=== PATIENT | male | born 1955 | race Caucasian/White ===

== ENCOUNTER 2018-07-13 06:10 | Inpatient (IN) | payer OTHER ==
[~2018-07-13] VITALS: Ht 177.8 cm; Wt 70.8 kg
[~2018-07-13 06:10] MED LIST: CARV3.1240 PO; LOSA-46 PO; WARF2.5T39 PO; WARF5TAB71 PO
[2018-07-13] MEDS ORDERED: SODIUM CHLORIDE 0.9% 500 ML IVB ONE (06:54)
[2018-07-13] MEDS ORDERED: MORPHINE SULFATE 4 MG/ML SYR/VIAL IV ONE (07:00)
[2018-07-13] MEDS ORDERED: ONDANSETRON HCL 4 MG/2 ML VIAL IV ONE (07:00)
[2018-07-13] MEDS ORDERED: MORPHINE SULF INJ 2 MG/ML SYRINGE 1ML ONE ×3 (07:02→13:59)
[2018-07-13 08:05] LABS: Basophils # (auto) 0 uL; Basophils % (auto) 0.4 % (0.0-2.0); Eosinophils # (auto) 0.2 uL; Eosinophils % (auto) 1.8 % (0.0-7.0); Hematocrit 46.6 % (41.0-53.0); Hemoglobin 15.8 g/dL (13.5-17.5); Lymphocytes % (auto) 10.3 % (10.0-50.0); Mean Corpuscular Hemoglobin 31.5 pg (28.0-32.0); Mean Corpuscular Hgb Conc. 33.9 g/dL (32.0-36.0); Mean Corpuscular Volume 92.8 fL (80.0-100.0); Monocytes # (auto) 0.1 uL; Monocytes % (auto) 1.2 % (0.0-12.0); Neutrophils # (auto) 8.6 uL; Neutrophils % (auto) 86.3 % (37.0-80.0); Nucleated Red Blood Cells % 0.1 %; Platelet Count (auto) 229 10^3/uL (140-450); Red Blood Cells 5.02 10^6/uL (4.5-5.90); Red Cell Distribution Width 12.8 % (11.8-14.3); White Blood Cell 9.9 10^3/uL (4.4-10.8)
[2018-07-13 08:23] LABS: Albumin 3.4 g/dL (3.4-5.0); Potassium 3.6 mmol/L (3.5-5.1)
[2018-07-13 08:28] LABS: BUN/Creatinine Ratio 15.1; Total Protein 7.5 g/dL (6.4-8.2)
[2018-07-13] MEDS ORDERED: metroNIDAZOLE 500MG/100ML 100 ML IV ONE (09:15)
[2018-07-13] MEDS ORDERED: cefTRIAXone 1GM/50ML D5W 50 ML IV ONE (09:45)
[2018-07-13] MEDS ORDERED: SODIUM CHLORIDE 0.9% 1,000 ML IV SCH (09:58)
[2018-07-13] MEDS ORDERED: NITROGLYCERIN 0.4 MG SL TAB SL PRN (10:00)
[2018-07-13] MEDS: CARVEDILOL 3.125 MG TAB PO SCH ×2 (10:00→20:54)
[2018-07-13] MEDS ORDERED: LOSARTAN POTASSIUM 50 MG TAB PO SCH (10:00)
[2018-07-13] MEDS ORDERED: MORPHINE SULFATE 4 MG/ML SYR/VIAL IV PRN (10:00)
[2018-07-13] MEDS: FAMOTIDINE 20 MG TAB PO SCH ×2 (10:15→20:54)
[2018-07-13 10:24] LABS: INR 1.91 (0.9-1.15); Prothrombin Time 19.7 sec (9.27-12.13)
[2018-07-13] MEDS: MULTIPLE VITAMIN TAB PO SCH (10:58)
[2018-07-13] MEDS: MORPHINE SULFATE 4 MG/ML SYR/VIAL IV PRN ×2 (14:02→20:52)
--- NOTE | 2018-07-13 15:15 | NUR ---
Telemetry admit from [facility] admitted to Telemetry unit after SBAR received. Patient oriented to RAINE FAN RN primary RN, unit, room, bed, and unit policies regarding patient care and visiting hours. Patient now on continuous telemetry monitoring, tele box #9 and telemetry reading on arrival to unit is a-fib. Patient weighed by bedscale and encouraged to call if they need something. All questions and concerns addressed, patient verbalized understanding. Patient's bed is locked and lowered with side rails up x2. Patient encouraged to call for assistance as needed. Call light within reach.
[2018-07-13] MEDS: HYDROcodone-ACET 5/325MG TAB PO PRN (16:36)
[2018-07-13] MEDS: metroNIDAZOLE 500MG/100ML 100 ML IV SCH ×2 (16:36→20:52)
[2018-07-13 16:44] VITALS: BP 127/59
[2018-07-13 16:47] VITALS: BP 129/61
[2018-07-13] MEDS ORDERED: WARFARIN SODIUM 1 MG TAB PO ONE (17:00)
--- NOTE | 2018-07-13 17:26 | NUR ---
MRSA swab MRSA swab sent to lab at this time.
--- NOTE | 2018-07-13 18:51 | NUR ---
End of Shift Note Patient resting in bed. Patient shows no signs or symptoms of distress or shortness of breath. Patient denies any pain at this time. Patient is in bed, locked and lowered. Will endorse care to the night clerk RN.
[2018-07-13] MEDS: TEMAZEPAM 15 MG CAP PO PRN (20:54)
[2018-07-13] MEDS: ONDANSETRON HCL 4 MG/2 ML VIAL IV PRN (21:04)
[2018-07-13 22:00] VITALS: BP 101/56
[2018-07-14] MEDS: HYDROcodone-ACET 5/325MG TAB PO PRN ×3 (02:01→19:45)
[2018-07-14] MEDS: metroNIDAZOLE 500MG/100ML 100 ML IV SCH ×4 (02:53→19:44)
[2018-07-14] MEDS: MORPHINE SULFATE 4 MG/ML SYR/VIAL IV PRN ×2 (02:56→15:07)
[2018-07-14 05:01] VITALS: BP 88/59
[2018-07-14 05:53] LABS: Basophils # (auto) 0 uL; Basophils % (auto) 0.2 % (0.0-2.0); Eosinophils # (auto) 0 uL; Eosinophils % (auto) 0.2 % (0.0-7.0); Hematocrit 37.5 % (41.0-53.0); Hemoglobin 12.7 g/dL (13.5-17.5); Lymphocytes % (auto) 6.5 % (10.0-50.0); Mean Corpuscular Hemoglobin 31.6 pg (28.0-32.0); Mean Corpuscular Hgb Conc. 33.9 g/dL (32.0-36.0); Mean Corpuscular Volume 93.3 fL (80.0-100.0); Monocytes # (auto) 0.5 uL; Monocytes % (auto) 3.2 % (0.0-12.0); Neutrophils # (auto) 13.8 uL; Neutrophils % (auto) 89.9 % (37.0-80.0); Platelet Count (auto) 169 10^3/uL (140-450); Red Blood Cells 4.02 10^6/uL (4.5-5.90); White Blood Cell 15.3 10^3/uL (4.4-10.8)
[2018-07-14 06:07] LABS: INR 2.5 (0.9-1.15); Prothrombin Time 25.4 sec (9.27-12.13)
[2018-07-14 06:11] LABS: Albumin 2.6 g/dL (3.4-5.0); Calcium 8.2 mg/dL (8.5-10.1); Potassium 3.7 mmol/L (3.5-5.1)
[2018-07-14 06:16] LABS: BUN/Creatinine Ratio 25.4; Bilirubin, Total 0.8 mg/dL (0.2-1.0); Total Protein 6.2 g/dL (6.4-8.2)
--- NOTE | 2018-07-14 08:00 | NUR ---
ASSESSMENT NOTE PT IS ALERT ORIENTED X4, RESTING IN BED COMFORTABLY, NO DISTRESS NOTED, SELF REPOSITION NEEDED, ABLE TO VERBALIS HIS DEMANDS, CALL LIGHT WITHIN REACH.
[2018-07-14] MEDS: cefTRIAXone 1GM/50ML D5W 50 ML IV SCH (08:33)
[2018-07-14 09:00] VITALS: BP 95/57
[2018-07-14] MEDS: FAMOTIDINE 20 MG TAB PO SCH ×2 (09:37→19:45)
[2018-07-14] MEDS: MULTIPLE VITAMIN TAB PO SCH (09:37)
[2018-07-14] MEDS: CARVEDILOL 3.125 MG TAB PO SCH ×2 (10:00→19:45)
--- NOTE | 2018-07-14 10:30 | NUR ---
FAMILY PT AT BED SIDE.
--- NOTE | 2018-07-14 11:45 | NUR ---
DR MCKINNON AT BED SIDE, FOLLOWING UP ON PT, WITH NEW ORDERS, PT AWARE AT BED SIDE.
--- NOTE | 2018-07-14 12:00 | NUR ---
DR MCKINNON CALLED RADIOLOGY, HE WAS INFORMED THAT THE ABSCESS IS TOO SMALL FOR ASPIRATION, DR MCKINNON INFORM ME TO RESUME COUMADIN.
--- NOTE | 2018-07-14 12:08 | NUR ---
NUTRITION CONSULT/ASSESSMENT NOTES Please refer to link notes of nutrition screen form filed under the intervention section of the plan of care for further details. Est. Needs: 1800 kcal to 2150 kcal (25-30 kcal/kgBW), 72 gms to 93 gms pro (1.0-1.3 gms/kgBW d/t mod hypoalbuminemia). Will continue to monitor pertinent labs and reassess nutrient need prn Thank you for this consult. Addendum: 07/14/18 at [address] Amended: Links added. 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 Thank you.
[2018-07-14 13:00] VITALS: BP 92/52
[2018-07-14] MEDS: SODIUM CHLORIDE 0.9% 1,000 ML IV SCH ×2 (14:56→22:30)
[2018-07-14] MEDS: HYOSCYAMINE SULF 0.125 MG ODT TAB PO SCH ×2 (14:56→22:18)
[2018-07-14 17:00] VITALS: BP 107/63
[2018-07-14] MEDS ORDERED: WARFARIN SODIUM 2 MG TAB PO ONE (17:00)
--- NOTE | 2018-07-14 18:30 | NUR ---
PT CONTINUE STABLE, RELAXED, CONTINUE ON PAIN MANAGEMENT NEEDED.
[2018-07-14] MEDS: ONDANSETRON HCL 4 MG/2 ML VIAL IV PRN (19:45)
[2018-07-14] MEDS: DOCUSATE SOD 100 MG CAP PO PRN (19:45)
[2018-07-14 22:00] VITALS: BP 105/67
[2018-07-14] MEDS: TEMAZEPAM 15 MG CAP PO PRN (22:26)
[2018-07-15] MEDS: MORPHINE SULFATE 4 MG/ML SYR/VIAL IV PRN ×3 (02:38→19:51)
[2018-07-15] MEDS: metroNIDAZOLE 500MG/100ML 100 ML IV SCH ×2 (02:38→08:55)
[2018-07-15] MEDS: SODIUM CHLORIDE 0.9% 1,000 ML IV SCH (02:39)
[2018-07-15] MEDS: ACETAMINOPHEN 325 MG TAB PO PRN (02:47)
[2018-07-15] MEDS: DOCUSATE SOD 100 MG CAP PO PRN (02:47)
[2018-07-15] MEDS: HYDROcodone-ACET 5/325MG TAB PO PRN ×2 (02:47→06:24)
[2018-07-15] MEDS: HYOSCYAMINE SULF 0.125 MG ODT TAB PO SCH ×3 (04:46→20:43)
[2018-07-15 05:00] VITALS: BP 96/61
[2018-07-15] MEDS: ONDANSETRON HCL 4 MG/2 ML VIAL IV PRN ×4 (07:03→20:43)
[2018-07-15 07:08] LABS: Basophils # (auto) 0 uL; Basophils % (auto) 0.1 % (0.0-2.0); Eosinophils # (auto) 0 uL; Eosinophils % (auto) 0.1 % (0.0-7.0); Hemoglobin 12.2 g/dL (13.5-17.5); Lymphocytes # (auto) 1.2 uL; Lymphocytes % (auto) 6.8 % (10.0-50.0); Mean Corpuscular Hemoglobin 32.1 pg (28.0-32.0); Mean Corpuscular Hgb Conc. 34.8 g/dL (32.0-36.0); Mean Corpuscular Volume 92.1 fL (80.0-100.0); Monocytes # (auto) 0.7 uL; Monocytes % (auto) 4.1 % (0.0-12.0); Neutrophils # (auto) 15.5 uL; Neutrophils % (auto) 88.9 % (37.0-80.0); Platelet Count (auto) 156 10^3/uL (140-450); Red Cell Distribution Width 12.9 % (11.8-14.3); White Blood Cell 17.4 10^3/uL (4.4-10.8)
[2018-07-15 07:23] LABS: Potassium 3.8 mmol/L (3.5-5.1)
[2018-07-15 07:27] LABS: INR 2.91 (0.9-1.15); Prothrombin Time 29.3 sec (9.27-12.13)
[2018-07-15 07:37] LABS: Albumin 2.5 g/dL (3.4-5.0); BUN/Creatinine Ratio 20.7; Bilirubin, Total 0.7 mg/dL (0.2-1.0); Calcium 8.2 mg/dL (8.5-10.1); Total Protein 6.2 g/dL (6.4-8.2)
[2018-07-15] MEDS: cefTRIAXone 1GM/50ML D5W 50 ML IV SCH (07:59)
[2018-07-15 08:00] VITALS: BP 105/67
--- NOTE | 2018-07-15 08:00 | NUR ---
ASSESSMENT NOTE PT IA ALERT ORIENTED X4, RESTING IN BED COMFORTABLY, NO DISTRESS NOTED, PT ABDOMEN APPEAR DISTENDED, PT STATED< I HAD A ROUGH NIGHT, BEEN NAUSEATED AND THROWING UP>, SELF REPOSITION NEEDED, CONTINUE ON PAIN MANAGEMENT, CALL LIGHT WITHIN REACH.
--- NOTE | 2018-07-15 08:10 | NUR ---
RE- CALLED SURGICAL CONSULT AGAIN, OPERATO INFORM ME THAT SHE JUST DID.
--- NOTE | 2018-07-15 08:40 | NUR ---
DR ORTIZ CALLED WITH NEW ORDERS, PT MADE AWARE.
[2018-07-15 08:58] VITALS: BP 102/69
--- NOTE | 2018-07-15 09:15 | NUR ---
Nasogastric tube insertion Patient educated on need for NG tube. All questions addressed. NGT inserted per MD order. 14 F, Placement verified by aspiration of stomach contents, auscultation .
--- NOTE | 2018-07-15 09:30 | NUR ---
FAMILY PT AT BED SIDE.
[2018-07-15] MEDS: D5W/SOD CHL 0.45%/KCL 40MEQ 1,000 ML IV SCH ×3 (09:52→22:05)
[2018-07-15] MEDS: FAMOTIDINE 20 MG TAB PO SCH ×2 (10:00→20:47)
[2018-07-15] MEDS: CARVEDILOL 3.125 MG TAB PO SCH ×2 (10:00→20:43)
[2018-07-15] MEDS: MULTIPLE VITAMIN TAB PO SCH (10:00)
[2018-07-15] MEDS ORDERED: GOLYTELY 4L KIT PO ONE (10:15)
--- NOTE | 2018-07-15 11:05 | NUR ---
GOLYTEL PT START TO DRINK THE GO LATELY, EXPLAIN TO PT WHY, VERBALIS UNDERSTANDING.
--- NOTE | 2018-07-15 11:43 | NUR ---
PT AFTER START TO DRINK THE GOLYTELY, HIS ABDOMEN START TO GET MORE DISTENDED, A SOFT ROUND POUCH NOTED ON PT EPIGASTRIC AREA, ADVICE PT TO STOP DRINKING, PT PT BACK ON LOW CONTINUES SUCTION, PT AWARE AT BED SIDE.
[2018-07-15] MEDS: ERTAPENEM SOD INJ 1 GM in SODIUM CHL 0.9% 50 ML IV SCH (12:10)
[2018-07-15 12:55] VITALS: BP 126/75
--- NOTE | 2018-07-15 13:40 | NUR ---
DR ORTIZ AT BED SIDE, FOLLOWING UP ON PT, AWARE THAT PT IS NOT TOLEREATING THE GO LATELY, INFORM ME TO KEEP THE NGT ON CONTINUOS SUCTION, AND GIVE PT ONE FLEET ENEMA GENTLY.
--- NOTE | 2018-07-15 14:11 | NUR ---
DR MCKINNON IS HERE, MADE AWARE OF PT LATEST UPDATE, SAID HOLD OFF ON ENEMA, AND HE WILL GOING TO PUT AN ORDER OF GASTROGRAFIN FOLLOW THROUGH.
--- NOTE | 2018-07-15 15:16 | NUR ---
OUT TO RADIOLOGY VIA A WHEEL CHAIR FOR UPPER GI SERIES, PT AT BED SIDE AWARE.
[2018-07-15] MEDS ORDERED: GASTROGRAFIN 120 ML SOL ONE (15:20)
--- NOTE | 2018-07-15 16:30 | NUR ---
PT IS BACK TO HIS ROOM, PER RADIOLOGY STAFF [place], KEEP PT OFF SUCTION TILL FURTHER ORDERS.
[2018-07-15 16:54] VITALS: BP 118/70
--- NOTE | 2018-07-15 17:15 | NUR ---
PT VOMIT 100 ML OF THE CONTRAST, RADIOLOGY MADE AWARE.
--- NOTE | 2018-07-15 17:30 | NUR ---
HEADLINE WRITER AT BED SIDE, FOR MORE X RAYS, SAID THAT PT NEED TO SIT UP MORE, IN ORDER TO GET THE CONTRAST MOVE DOWN, PT VERBALIS UNDERSTANDING, ALSO NO NGT SUCTION TILL CLEARE BY THE RADIOLOGY.
[2018-07-15] MEDS: METOCLOPRAMIDE HCL 5MG/ml INJ 2ml VIAL IV SCH (17:55)
--- NOTE | 2018-07-15 18:52 | NUR ---
PT CONTINUE TO HAVE OCCASIONAL VOMIT FROM THE CONTRAST, RE SECURE THE NGT, NGT IS OFF SUCTIONING TILL PT FINISH ALL THE IMAGES.
[2018-07-15] MEDS ORDERED: TPN PER PHARMACY IV NR ×8 (20:00)
[2018-07-15] MEDS: TEMAZEPAM 15 MG CAP PO PRN (20:42)
[2018-07-15 21:51] VITALS: BP 124/74
[2018-07-16] VITALS (9 sets, daily range): BP systolic 108–133; BP diastolic 68–89
[2018-07-16] MEDS: TEMAZEPAM 15 MG CAP PO PRN (01:50)
[2018-07-16] MEDS: ONDANSETRON HCL 4 MG/2 ML VIAL IV PRN ×3 (04:11→23:58)
[2018-07-16] MEDS: MORPHINE SULFATE 4 MG/ML SYR/VIAL IV PRN ×5 (04:11→23:46)
[2018-07-16] MEDS: METOCLOPRAMIDE HCL 5MG/ml INJ 2ml VIAL IV SCH ×2 (04:11)
[2018-07-16] MEDS: D5W/SOD CHL 0.45%/KCL 40MEQ 1,000 ML IV SCH ×3 (04:12→23:15)
[2018-07-16] MEDS: HYOSCYAMINE SULF 0.125 MG ODT TAB PO SCH (05:36)
[2018-07-16] MEDS: CARVEDILOL 3.125 MG TAB PO SCH ×2 (05:36→22:39)
[2018-07-16 05:50] LABS: Basophils # (auto) 0 uL; Eosinophils # (auto) 0 uL; Hematocrit 37.1 % (41.0-53.0); Hemoglobin 12.9 g/dL (13.5-17.5); Lymphocytes # (auto) 1.1 uL; Lymphocytes % (auto) 5.5 % (10.0-50.0); Mean Corpuscular Hemoglobin 32.2 pg (28.0-32.0); Mean Corpuscular Hgb Conc. 34.8 g/dL (32.0-36.0); Mean Corpuscular Volume 92.3 fL (80.0-100.0); Monocytes # (auto) 0.9 uL; Monocytes % (auto) 4.6 % (0.0-12.0); Neutrophils # (auto) 17.4 uL; Neutrophils % (auto) 89.9 % (37.0-80.0); Platelet Count (auto) 200 10^3/uL (140-450); Red Blood Cells 4.02 10^6/uL (4.5-5.90); Red Cell Distribution Width 12.9 % (11.8-14.3); White Blood Cell 19.4 10^3/uL (4.4-10.8)
[2018-07-16 06:01] LABS: INR 2.94 (0.9-1.15); Partial Thromboplastin Time 44.8 sec (23.78-33.04); Prothrombin Time 29.6 sec (9.27-12.13)
[2018-07-16 06:03] LABS: Calcium 8.3 mg/dL (8.5-10.1); Potassium 4.2 mmol/L (3.5-5.1)
[2018-07-16 06:51] LABS: Albumin 2.6 g/dL (3.4-5.0)
[2018-07-16 06:55] LABS: Bilirubin, Direct 0.2 mg/dL (0-0.2); Bilirubin, Total 0.4 mg/dL (0.2-1.0); Total Protein 6.5 g/dL (6.4-8.2)
--- NOTE | 2018-07-16 07:03 | NUR ---
PATIENT O2 SAT 93-94% ON ROOM AIR. PLACED PATIENT O2 2LNC. PATIENT HR 110-130S. ADMINSITERED PATIENT AM DOSE OF COREG AND COZAAR THIS AM. AWAITING F/U KUB THIS AM, THEN PLACE PATIENT NGT TO LOW CONTINUOUS SUCTION.
--- NOTE | 2018-07-16 08:45 | NUR ---
NG TUBE CONNECTED TO LIS AFTER XRAY DONE FOR SMALL BOWEL SERIES.
[2018-07-16] MEDS ORDERED: LOSARTAN POTASSIUM 50 MG TAB PO SCH (10:00)
[2018-07-16] MEDS: MULTIPLE VITAMIN TAB PO SCH (10:11)
[2018-07-16] MEDS: FAMOTIDINE 20 MG TAB PO SCH (10:11)
[2018-07-16] MEDS: ERTAPENEM SOD INJ 1 GM in SODIUM CHL 0.9% 50 ML IV SCH (10:11)
[2018-07-16] MEDS ORDERED: ENALAPRILAT 1.25 MG/ML-1ML VIAL IV PRN (10:45)
[2018-07-16] MEDS ORDERED: DIGOXIN (250MCG/ML) 2 ML AMPULE IV ONE (11:00)
--- NOTE | 2018-07-16 11:01 | NUR ---
PT SEEN BY DR. MCKINNON RESULT OF SMALL BOWEL SERIES EXPLAINED TO THE PT AND FAMILY, THE PLAN FOR TPN, ANTIBIOTIC, NPO AND POSSIBLE SURGERY. PT AND FAMILY VERBALIZED UNDERSTANDING.
--- NOTE | 2018-07-16 11:19 | NUR ---
PICC LINE CONSULT SPOKE WITH EDMAR PICC LINE NURSE, SHE SAID SHE CANNOT INSERT PICC LINE AT THIS TIME DUE TO INR 2.94, PAGED DR. MCKINNON WAITING FOR CALL BACK.
--- NOTE | 2018-07-16 11:30 | NUR ---
DR. MCKINNON AT BEDSIDE HE ORDERED TO GIVE FFP 1BAG AND CHECK INR 30 MINUTES AFTER, IF INR IS ABOVE 2 PT MAY START WITH CLINIMIX 40ML/HR AND WAIT FOR INR TO DROP FOR PICC LINE INSERTION AND START TPN.
--- NOTE | 2018-07-16 12:09 | NUR ---
PT SEEN BY DR. WILKINSON PT INFORMED ABOUT THE SMALL BOWEL SERIES , PT AND FAMILY MADE AWARE ABOUT POSSIBLE SURGERY AND COLOSTOMY. PT AND FAMILY VERBALIZED UNDERSTANDING.
--- NOTE | 2018-07-16 12:50 | NUR ---
PT SEEN BY DR. ACE
--- NOTE | 2018-07-16 14:33 | NUR ---
FRESH FROZEN PLASMA STARTED WITH UNIT # [id number]
--- NOTE | 2018-07-16 14:56 | NUR ---
Nutrition Follow-up Notes Wt.: 74.8 kg as of yesterday Pt's on oxygen via nasal cannula, asleep, no immediate family member at bedside during rounds this morning. Pt's no signs of distress noted earlier, on Clear Liquid diet with good PO intake aeb 100% ave. consumed meals (x4) since yesterday. Noted pt's now NPO and for active Cardiology and PICC line consults. Est. Needs: 1800 kcal to 2150 kcal (25-30 kcal/kgBW), 72 gms to 93 gms pro (1.0-1.3 gms/kgBW d/t mod hypoalbuminemia). Will continue to monitor pertinent labs and reassess nutrient need prn Labs: Gluc 198 H, Cr 0.60 L, Ca 8.3 L, Alb 2.6 L Skin: Esequiel scale 23, low risk, skin intact per charge lpn. GI: Pt had 1 BM yesterday per charge lpn. PES: Increased nutrient needs r/t altered GI functions aeb Intractable abdominal pain, Acute diverticulitis, mod hypoalbuminemia, reported weight loss, on Clear Liquid diet. Altered nutrition related lab values r/t current/chronic medical condition aeb hyponatremia, low Cr, hypocalcemia and mod hypoalbuminemia Will continue to monitor NPO status, skin status, pertinent labs and weight trend. F/u in 2 to 3 days. Rec.: 1.) Advance gradually to oral diet (Soft Low Fiber/Residue diet) when medically appropriate. 2.) If Albumin level continues trending down, consider Prostat 1 pkt BID. 3.) Continue close supervision with meals 4.) If still NPO, consider alternate nutrition support if medically appropriate. 5.) Refer to RD for further nutrition educ. and weight monitoring upon discharge. 6.) Continue current plan of care.
[2018-07-16 16:47] LABS: INR 3.16 (0.9-1.15); Prothrombin Time 31.7 sec (9.27-12.13)
[2018-07-16] MEDS ORDERED: CLINIMIX PER PHARMACY 0 ML IV SCH (17:00)
--- NOTE | 2018-07-16 17:35 | NUR ---
CALLED LAB REGARDING ELEVATED INR RESULT, VERIFIED IF THEY DRAW BLOOD AFTER FRESH FROZEN PLASMA, BUT FOUND OUT THEY ADDED IT TO BLOOD DRAWN AT 1230 PRIOR TO TRANSFUSION. LAB INFORMED TO DRAW BLOOD FOR ACCURATE INR RESULT POST TRANSFUSION.
[2018-07-16 18:28] LABS: INR 2.48 (0.9-1.15); Prothrombin Time 25.2 sec (9.27-12.13)
--- NOTE | 2018-07-16 18:30 | NUR ---
NG TUBE OUTPUT 1600 GREENISH COLOR.
--- NOTE | 2018-07-16 19:30 | NUR ---
Opening Shift Note Assumed care of patient from day shift RN Randa. Pt is awake and alert and oriented x4. No S/S of distress/SOB. Pt complains of abdominal pain 10/10, administered pain medication. Safety maintained with bed rails upx2, locked and in lowest position with call estrella within reach. Instructed on POC and to call for assist PRN, will continue to monitor for changes Q1hr and PRN.
[2018-07-16 19:59] LABS: Magnesium 1.8 mg/dL (1.6-2.6); Phosphorus 2.4 mg/dL (2.5-4.90)
[2018-07-16] MEDS ORDERED: InsuLIN REG 1unit/0.01ml Soln (100units/ml) SC ONE (20:00)
[2018-07-16] MEDS ORDERED: ACCU-CHEK COMFORT CURVE STRIP VI ONE (20:00)
[2018-07-16 20:04] LABS: Pre Albumin 10.6 mg/dL (20.0-40.0)
[2018-07-16] MEDS ORDERED: SODIUM PHOSPHATES 20 MEQ in SODIUM CHL 0.9% 100 ML IV ONE (21:00)
[2018-07-16] MEDS: CLINIMIX PER PHARMACY IV NR (21:14)
[2018-07-16] MEDS: ACCU-CHEK COMFORT CURVE STRIP VI SCH (23:44)
[2018-07-16] MEDS: InsuLIN REG 1unit/0.01ml Soln (100units/ml) SC SCH (23:44)
[2018-07-17] MEDS ORDERED: DEXTROSE (50%) 50ML SYRG IV SCH
[2018-07-17] MEDS: MORPHINE SULFATE 4 MG/ML SYR/VIAL IV PRN ×3 (04:05→15:46)
[2018-07-17] MEDS: ONDANSETRON HCL 4 MG/2 ML VIAL IV PRN ×4 (04:05→20:52)
[2018-07-17 04:42] VITALS: BP 118/69
[2018-07-17 05:28] LABS: Basophils # (auto) 0 uL; Eosinophils # (auto) 0 uL; Eosinophils % (auto) 0.2 % (0.0-7.0); Hematocrit 34.3 % (41.0-53.0); Hemoglobin 11.7 g/dL (13.5-17.5); Lymphocytes % (auto) 6.5 % (10.0-50.0); Mean Corpuscular Hemoglobin 31.5 pg (28.0-32.0); Mean Corpuscular Hgb Conc. 34.2 g/dL (32.0-36.0); Mean Corpuscular Volume 92.1 fL (80.0-100.0); Monocytes # (auto) 0.9 uL; Monocytes % (auto) 6.2 % (0.0-12.0); Neutrophils # (auto) 13.3 uL; Neutrophils % (auto) 87.1 % (37.0-80.0); Platelet Count (auto) 218 10^3/uL (140-450); Red Blood Cells 3.72 10^6/uL (4.5-5.90); Red Cell Distribution Width 13.1 % (11.8-14.3); White Blood Cell 15.2 10^3/uL (4.4-10.8)
[2018-07-17 05:35] LABS: INR 2.69 (0.9-1.15); Partial Thromboplastin Time 39.5 sec (23.78-33.04); Prothrombin Time 27.2 sec (9.27-12.13)
[2018-07-17 05:38] LABS: Potassium 3.8 mmol/L (3.5-5.1)
[2018-07-17 05:45] LABS: Albumin 2.5 g/dL (3.4-5.0); BUN/Creatinine Ratio 34.6; Bilirubin, Total 0.4 mg/dL (0.2-1.0); Calcium 8.3 mg/dL (8.5-10.1); Magnesium 1.9 mg/dL (1.6-2.6); Phosphorus 3.3 mg/dL (2.5-4.90); Total Protein 6.1 g/dL (6.4-8.2)
--- NOTE | 2018-07-17 06:00 | NUR ---
IV insertion IV access obtained, via clean sterile technique by inserting 22 gauge catheter at LEFT WRIST after 1 attempt(s). IV secured properly. No trauma to site. Patient tolerated well.
[2018-07-17] MEDS: InsuLIN REG 1unit/0.01ml Soln (100units/ml) SC SCH ×3 (06:14→18:30)
[2018-07-17] MEDS: ACCU-CHEK COMFORT CURVE STRIP VI SCH ×3 (06:14→18:30)
--- NOTE | 2018-07-17 07:26 | NUR ---
NG TUBE OUTPUT 500 ML BROWN COLOR
--- NOTE | 2018-07-17 07:30 | NUR ---
Opening Shift Note Assumed care of patient, awake and alert, lying on bed. No S/S of distress/SOB or pain. Call light within reach, 2 side rails up and bed in lowest position. Pt stated he had 2 bowel movement and noted active bowel sounds. Instructed on POC and to call for assist PRN, will continue to monitor for changes Q1hr and PRN.
[2018-07-17 08:28] VITALS: BP 117/59
[2018-07-17] MEDS ORDERED: PANTOPRAZOLE 40 MG/10 ML VIAL IV SCH (10:00)
[2018-07-17] MEDS: ERTAPENEM SOD INJ 1 GM in SODIUM CHL 0.9% 50 ML IV SCH (10:21)
[2018-07-17] MEDS: DIGOXIN (250MCG/ML) 2 ML AMPULE IV SCH (10:22)
[2018-07-17] MEDS: CARVEDILOL 3.125 MG TAB PO SCH ×2 (10:22→22:22)
[2018-07-17 12:10] VITALS: BP 133/78
--- NOTE | 2018-07-17 13:20 | NUR ---
DR. SETH AT BEDSIDE MADE AWARE PT HAD 7 BM WATERY AND PT IS PASSING OUT A LOT OF GAS. HE ORDERED SMALL BOWEL SERIES AND PROTONIX 40MG IV BID, HE IS AWARE PT IS COMPLAINING OF BLOOD IN THE SUCTION TUBING. PER DR. SETH IF SMALL BOWEL SERIES IS NEGATIVE PT CAN HAVE SIPS OF WATER.
[2018-07-17] MEDS: D5W/SOD CHL 0.45%/KCL 40MEQ 1,000 ML IV SCH (14:33)
[2018-07-17 16:36] VITALS: BP 146/73
--- NOTE | 2018-07-17 17:26 | NUR ---
DR. SETH NOTIFIED OF SMALL BOWEL XRAY RESULT. WAITING FOR CALL BACK.
--- NOTE | 2018-07-17 18:36 | NUR ---
DR. SETH ORDERED TO DC NGT AND PT CAN HAVE CLEAR LIQUID DIET.
--- NOTE | 2018-07-17 19:35 | NUR ---
Opening Note Received report from day shift RN. Per day shifts report MD is aware of patients A Fib rhythm and increased heart rate. Patient is awake, alert and oriented x4. No signs or symptoms of distress or shortness of breath at this time. Patient states lower left quadrant abdominal pain 4/10. Reviewed plan of care with patient, patient verbalized understanding. Call light within reach, bed in low and locked position. Will continue to monitor Q1 hour and PRN.
[2018-07-17] MEDS: CLINIMIX PER PHARMACY IV NR (19:49)
[2018-07-17] MEDS ORDERED: CLINIMIX PER PHARMACY IV NR ×6 (20:00)
[2018-07-17 21:44] VITALS: BP 128/92
[2018-07-17] MEDS: PANTOPRAZOLE 40 MG/10 ML VIAL IV SCH (22:20)
[2018-07-18] MEDS: MORPHINE SULFATE 4 MG/ML SYR/VIAL IV PRN (00:21)
[2018-07-18] MEDS: ACCU-CHEK COMFORT CURVE STRIP VI SCH ×4 (00:25→17:36)
[2018-07-18] MEDS: InsuLIN REG 1unit/0.01ml Soln (100units/ml) SC SCH ×4 (00:29→17:36)
[2018-07-18] MEDS: D5W/SOD CHL 0.45%/KCL 40MEQ 1,000 ML IV SCH ×2 (01:42→18:35)
[2018-07-18 04:45] VITALS: BP 123/68
[2018-07-18 05:49] LABS: Albumin 2.6 g/dL (3.4-5.0); Calcium 8.1 mg/dL (8.5-10.1); Magnesium 1.8 mg/dL (1.6-2.6); Potassium 3.5 mmol/L (3.5-5.1)
[2018-07-18 05:53] LABS: BUN/Creatinine Ratio 31.5; Bilirubin, Total 0.6 mg/dL (0.2-1.0); Phosphorus 2.8 mg/dL (2.5-4.90); Total Protein 6.2 g/dL (6.4-8.2)
--- NOTE | 2018-07-18 07:25 | NUR ---
Opening Shift Note Assumed care of patient, awake and alert, lying on bed. No S/S of distress/SOB or pain. Pt complains of nausea, will give medication as ordered. 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 Instructed on POC and to call for assist PRN, will continue to monitor for changes Q1hr and PRN.
[2018-07-18] MEDS: ONDANSETRON HCL 4 MG/2 ML VIAL IV PRN (07:31)
[2018-07-18 08:47] VITALS: BP 122/80
[2018-07-18] MEDS: PANTOPRAZOLE 40 MG/10 ML VIAL IV SCH ×2 (09:48→22:08)
[2018-07-18] MEDS: CARVEDILOL 3.125 MG TAB PO SCH ×2 (09:48→22:08)
[2018-07-18] MEDS: DIGOXIN (250MCG/ML) 2 ML AMPULE IV SCH (09:51)
[2018-07-18] MEDS: HYDROcodone-ACET 5/325MG TAB PO PRN ×2 (09:51→19:43)
[2018-07-18] MEDS: ERTAPENEM SOD INJ 1 GM in SODIUM CHL 0.9% 50 ML IV SCH (09:51)
[2018-07-18] MEDS: POTASSIUM CHL 20MEQ/100ML 100 ML IV SCH ×2 (11:45→15:05)
--- NOTE | 2018-07-18 12:41 | NUR ---
Nutrition Consult and Follow-up Notes Wt.: 78.3 kg as of yesterday Pt's sitting up on bed, watching TV, states he feels better, however still having mild abdominal pain when rounded this morning. Pt's on Clear Liquid diet with poor PO intake aeb <50% consumed meals (x1) since yesterday. Encouraged to drink fluids frequently as tolerated while on current diet. Pt's currently on Clinimix @ 42 ml/hr providing 510 kcal, 340 NPCs and 42.5 gms pro. Pt with inadequate PN support d/t low initiation rate delivery of diluted formula aeb current PN infusion meets 24% to 28% of est caloric needs and 47% to 59% of est protein needs. Discussed importance/benefits of PN support while on Clear Liquid r/t his current medical condition and he verbalized understanding. Noted pt's to receive tonight another Clinimix @ same rate. Est. Needs: 1800 kcal to 2150 kcal (25-30 kcal/kgBW), 72 gms to 93 gms pro (1.0-1.3 gms/kgBW d/t mod hypoalbuminemia). Will continue to monitor pertinent labs and reassess nutrient need prn Labs: Gluc 113 H, Cr 0.54 L, Ca 8.1 L, Tpro 6.2 L, Alb 2.6 L; 07/16/18 Prealb 10.6 L, Trig 78 wnl Skin: Esequiel scale 23, low risk, skin intact per documentation clerk. GI: Pt had 1 BM this morning per documentation clerk. PES: Increased nutrient needs r/t altered GI functions aeb Intractable abdominal pain, Acute diverticulitis, mod hypoalbuminemia, reported weight loss, on Clear Liquid diet. Altered nutrition related lab values r/t current/chronic medical condition aeb hyponatremia, low Cr, hypocalcemia and mod hypoalbuminemia Will continue to monitor PO intake, PN tolerance, skin status, pertinent labs and weight trend. F/u in 2 to 3 days. Rec.: 1.) Advance gradually oral diet when medically appropriate. 2.) If still on Clear Liquid diet with PN support, consider gradual increase on calories to meet at least 75% of est nutrient needs. 3.) Continue close supervision with meals. 4.) Refer to RD for further nutrition educ. and weight monitoring upon discharge. 5.) Continue current plan of care. Thank you for this consult.
[2018-07-18 16:47] VITALS: BP 119/83
--- NOTE | 2018-07-18 16:50 | NUR ---
PT SEEN BY DR. SETH HE ORDERED REPEAT CT OF ABDOMEN AND PELVIS AND PT/PTT FOR TOMORROW. PT MADE AWARE OF POSSIBLE PICC LINE INSERTION FOR HOME IV ANTIBIOTIC DEPENDING ON CT ABDOMEN RESULT. PT VERBALIZED UNDERSTANDING.
[2018-07-18] MEDS ORDERED: IOHEXOL 300 MG/ML 100ML BOTTLE IJ ONE (17:04)
--- NOTE | 2018-07-18 19:45 | NUR ---
OPENING SHIFT NOTE RECEIVED REPORT FROM DAYSHIFT RN. PT RESTING COMFORTABLY IN BED. NO S/S OF DISTRESS OR SOB. PT REPORTS GENERALIZED PAIN AND IS REQUESTING NORCO. WILL MEDICATE PER MEDICATION ORDERS. UPDATED PT ON POC, VERBALIZED UNDERSTANDING. BED LOCKED IN LOW POSITION, CALL LIGHT WITHIN REACH, WILL CONTINUE TO MONITOR PT Q1HR AND PRN.
[2018-07-18] MEDS ORDERED: CLINIMIX PER PHARMACY IV NR ×6 (20:00)
[2018-07-18 22:00] VITALS: BP 112/69
[2018-07-19] MEDS: ACCU-CHEK COMFORT CURVE STRIP VI SCH ×4 (00:29→18:09)
[2018-07-19] MEDS: TEMAZEPAM 15 MG CAP PO PRN (00:31)
[2018-07-19] MEDS: D5W/SOD CHL 0.45%/KCL 40MEQ 1,000 ML IV SCH ×3 (01:11→22:33)
[2018-07-19 05:11] VITALS: BP 116/70
[2018-07-19 05:38] LABS: Basophils # (auto) 0 uL; Basophils % (auto) 0.1 % (0.0-2.0); Eosinophils # (auto) 0.2 uL; Eosinophils % (auto) 1.8 % (0.0-7.0); Hematocrit 36.6 % (41.0-53.0); Hemoglobin 12.5 g/dL (13.5-17.5); Lymphocytes # (auto) 1.8 uL; Lymphocytes % (auto) 15.8 % (10.0-50.0); Mean Corpuscular Hemoglobin 31.3 pg (28.0-32.0); Mean Corpuscular Hgb Conc. 34.1 g/dL (32.0-36.0); Mean Corpuscular Volume 91.8 fL (80.0-100.0); Monocytes # (auto) 0.9 uL; Monocytes % (auto) 7.7 % (0.0-12.0); Neutrophils # (auto) 8.3 uL; Neutrophils % (auto) 74.6 % (37.0-80.0); Platelet Count (auto) 238 10^3/uL (140-450); Red Blood Cells 3.98 10^6/uL (4.5-5.90); White Blood Cell 11.1 10^3/uL (4.4-10.8)
[2018-07-19] MEDS: InsuLIN REG 1unit/0.01ml Soln (100units/ml) SC SCH ×4 (05:49→18:00)
[2018-07-19 05:53] LABS: INR 1.41 (0.9-1.15); Partial Thromboplastin Time 30.8 sec (23.78-33.04); Prothrombin Time 14.8 sec (9.27-12.13)
[2018-07-19 06:03] LABS: Potassium 3.7 mmol/L (3.5-5.1)
[2018-07-19 06:15] LABS: Albumin 2.3 g/dL (3.4-5.0); Bilirubin, Total 0.8 mg/dL (0.2-1.0); Calcium 7.9 mg/dL (8.5-10.1); Phosphorus 3.8 mg/dL (2.5-4.90); Total Protein 5.8 g/dL (6.4-8.2)
--- NOTE | 2018-07-19 07:13 | NUR ---
Opening Shift Note Assumed care of patient, awake and alert, sitting on bedside chair. No S/S of distress/SOB or pain. Call light within reach, 2 side rails up and bed in lowest position. Pt stated he had 5 watery stools last night. Instructed on POC and to call for assist PRN, will continue to monitor for changes Q1hr and PRN.
--- NOTE | 2018-07-19 07:18 | NUR ---
DR. SETH NOTIFIED OF THE CT ABDOMEN PELVIS RESULT, HE SAID TO NOTIFY SURGERY AND PROCEED WITH PICC LINE INSERTION.
--- NOTE | 2018-07-19 07:45 | NUR ---
DR. SETH NOTIFIED. PT HAS BEEN HAVING WATERY STOOLS 5X LAST NIGHT. HE ORDERED TO SEND STOOL FOR C-DIFF.
--- NOTE | 2018-07-19 08:11 | NUR ---
EDMAR PICC LINE NURSE MADE AWARE OF THE PICC LINE CONSULT.
--- NOTE | 2018-07-19 08:12 | NUR ---
PAGED DR. WILKINSON FOR CT ABDOMEN RESULT, WAITING FOR CALL BACK. Addendum: 07/19/18 at 0817 by Randa Judd RN DR. WILKINSON CALLED BACK AND MADE AWARE OF THE CT ABDOMEN RESULT, HE SAID HE WILL COME SEE THE PT TODAY.
--- NOTE | 2018-07-19 09:07 | NUR ---
STOOL SAMPLE SENT TO LAB FOR C-DIFF.
[2018-07-19 09:19] VITALS: BP 105/71
[2018-07-19] MEDS: ERTAPENEM SOD INJ 1 GM in SODIUM CHL 0.9% 50 ML IV SCH (09:24)
[2018-07-19] MEDS: PANTOPRAZOLE 40 MG/10 ML VIAL IV SCH ×2 (09:25→22:11)
[2018-07-19] MEDS: DIGOXIN (250MCG/ML) 2 ML AMPULE IV SCH (09:25)
[2018-07-19] MEDS: CARVEDILOL 3.125 MG TAB PO SCH ×2 (09:26→22:17)
--- NOTE | 2018-07-19 09:40 | NUR ---
PT SEEN BY DR. SETH HE SAID TO KEEP PT NPO. PT INFORMED ABOUT THE CT SCAN RESULT AND MADE AWARE HE MIGHT NEED SURGERY. PT VERBALIZED UNDERSTANDING.
[2018-07-19 13:15] VITALS: BP 101/62
--- NOTE | 2018-07-19 14:36 | NUR ---
PICC line placement Patient/Patient significant other educated on need for PICC line placement. All risks and benefits explained and all questions and concerns addressed prior to procedure. Noted past medical history and allergies with no contraindications. INR and Plt counts within acceptable range. 5 fr PICC line inserted via basilic vein using [employer] US and Tip Location System. Sterile technique with maximum barrier precautions utilized. Blood return obtained from each of two lumens and each flushed easily with NS using proper technique. PICC secured with Stat-lock; biodisc and occlusive dressing applied. Stat portable chest x-ray obtained for PICC tip placement. *Baseline Arm Circumference 29cm. PICC lot # [id number] internal length 38cm external length 0cm.
[2018-07-19] MEDS ORDERED: LIDOCAINE 1% (LOCAL ANESTH.) PF 5ml SDV ID ONE (14:45)
--- NOTE | 2018-07-19 16:06 | NUR ---
OK to use PICC line Xray completed. OK to use PICC line by .
[2018-07-19 16:59] VITALS: BP 102/78
[2018-07-19] MEDS: HYDROcodone-ACET 5/325MG TAB PO PRN (17:16)
[2018-07-19] MEDS ORDERED: [UNRECOGNIZED DRUG - OTHER] IV NR ×7 (20:00)
[2018-07-19] MEDS ORDERED: MAGNESIUM SULF IV NR ×7 (20:00)
[2018-07-19] MEDS ORDERED: SODIUM ACETATE IV NR ×7 (20:00)
[2018-07-19] MEDS ORDERED: SODIUM PHOSPHATES IV NR ×7 (20:00)
[2018-07-19 22:00] VITALS: BP 108/67
[2018-07-19] MEDS: SODIUM CHLOR 0.9% PF (SALINE LOCK) 10ML VIAL/SYR IV SCH (22:11)
[2018-07-20] MEDS: D5W/SOD CHL 0.45%/KCL 40MEQ 1,000 ML IV SCH ×2 (02:05→09:37)
[2018-07-20] MEDS: HYDROcodone-ACET 5/325MG TAB PO PRN ×4 (02:07→23:52)
[2018-07-20 05:00] VITALS: BP 106/71
[2018-07-20] MEDS: InsuLIN REG 1unit/0.01ml Soln (100units/ml) SC SCH ×5 (06:00→23:50)
[2018-07-20] MEDS: ACCU-CHEK COMFORT CURVE STRIP VI SCH ×5 (06:00→23:51)
[2018-07-20 06:28] LABS: Albumin 2.3 g/dL (3.4-5.0); Calcium 7.5 mg/dL (8.5-10.1); Potassium 3.7 mmol/L (3.5-5.1)
[2018-07-20 06:36] LABS: BUN/Creatinine Ratio 17.4; Bilirubin, Total 0.9 mg/dL (0.2-1.0); Phosphorus 3.4 mg/dL (2.5-4.90); Pre Albumin 11.7 mg/dL (20.0-40.0); Total Protein 5.5 g/dL (6.4-8.2)
--- NOTE | 2018-07-20 07:30 | NUR ---
Opening Shift Note Assumed care of patient, awake and alert, oriented x 4 and verbally responsive. Respiratory even and unlabored. No S/S of distress/SOB or pain. Skin is warm and dry to touch. Instructed on POC and to call for assist PRN, will continue to monitor for changes Q1hr and PRN.
--- NOTE | 2018-07-20 08:00 | NUR ---
DR WILKINSON INFORM THAT DR POWERS (RADIOLOGIST) WILL NOT DO PERICOLIC DRAINAGE DUE TO TOO SMALL AND NEAR THE COLON.
[2018-07-20 08:56] VITALS: BP 101/70
--- NOTE | 2018-07-20 09:16 | NUR ---
Called radiology spoke to Jojo ARMSTRONG, per Dr. Velasquez patient will not have percutaneous drainage, patient notified.
[2018-07-20] MEDS: PANTOPRAZOLE 40 MG/10 ML VIAL IV SCH ×2 (09:32→21:44)
[2018-07-20] MEDS: DIGOXIN (250MCG/ML) 2 ML AMPULE IV SCH (09:35)
[2018-07-20] MEDS: ERTAPENEM SOD INJ 1 GM in SODIUM CHL 0.9% 50 ML IV SCH (09:36)
[2018-07-20] MEDS: CARVEDILOL 3.125 MG TAB PO SCH ×2 (09:43→21:45)
[2018-07-20] MEDS: SODIUM CHLOR 0.9% PF (SALINE LOCK) 10ML VIAL/SYR IV SCH ×2 (09:43→21:48)
[2018-07-20] MEDS ORDERED: TPN PER PHARMACY 0 ML IV SCH (10:00)
[2018-07-20 12:24] VITALS: BP 106/70
--- NOTE | 2018-07-20 12:26 | NUR ---
Nutrition Follow-up Notes Wt.: 75.1 kg Pt's sleeping with no family by beside. pt is currently NPO on PN support with Clinimix @ 42 ml/hr providing 510 kcal, 340 NPCs and 42.5 gms pro. Pt with inadequate PN support d/t low initiation rate delivery of diluted formula aeb current PN infusion meets 24% to 28% of est caloric needs and 47% to 59% of est protein needs. Est. Needs: 1800 kcal to 2150 kcal (25-30 kcal/kgBW), 72 gms to 93 gms pro (1.0-1.3 gms/kgBW d/t mod hypoalbuminemia). Will continue to monitor pertinent labs and reassess nutrient need prn Labs: CA 7.5 L, GLU 116 H, PREALB 11.7 L, ALB 2.3 L. Skin: Esequiel scale 21, low risk, skin intact per application support analyst. GI: Pt had 1 BM on 07/19 per application support analyst. PES: Increased nutrient needs r/t altered GI functions aeb Intractable abdominal pain, Acute diverticulitis, mod hypoalbuminemia, reported weight loss, on Clear Liquid diet. Altered nutrition related lab values r/t current/chronic medical condition aeb hyponatremia, low Cr, hypocalcemia and mod hypoalbuminemia Will continue to monitor NPO status, PN tolerance, skin status, pertinent labs and weight trend. F/u in 2 to 3 days. Rec.: 1.) Advance gradually oral diet when medically appropriate. 2.) Advance PN support, to gradual increase on calories to meet at least 75% of est nutrient needs. 3.) Continue close supervision with meals. 4.) Refer to RD for further nutrition educ. and weight monitoring upon discharge. 5.) Continue current plan of care.
--- NOTE | 2018-07-20 12:30 | NUR ---
Dr. Velasquez at bedside discussed with patient.
--- NOTE | 2018-07-20 15:30 | NUR ---
Dr. Velasquez paged regarding patient already make his decision about his care plans, awaiting to call back.
--- NOTE | 2018-07-20 16:08 | NUR ---
Dr. Lee paged regarding patient wants to go home with ATB and TPN, awaiting to call back.
--- NOTE | 2018-07-20 16:24 | NUR ---
Dr. Lee made aware that patient wants to go home with ATB and TPN.
[2018-07-20 17:20] VITALS: BP 120/72
--- NOTE | 2018-07-20 19:10 | NUR ---
ASSUMED PATIENT CARE PATIENT IS ALERT AND ORIENTED X4, ANSWERS IN COMPLETE SENTENCES AND MAKES APPROPRIATE EYE CONTACT. PATIENT IS IN BED, BED IS LOCKED IN LOWEST POSITION, BED RAILS UP X2 AND HEAD OF BED IS UP 30 DEGREES FOR SAFETY PRECAUTIONS. BEDSIDE TABLE WITHIN REACH, CALL LIGHT WITHIN REACH, DISCUSSED POC WITH PATIENT AND INSTRUCTED PATIENT TO CALL PRN; PATIENT VERBALIZED UNDERSTANDING. WILL CONTINUE TO MONITOR Q1H AND PRN.
[2018-07-20] MEDS ORDERED: TPN PER PHARMACY IV NR ×10 (20:00)
[2018-07-20] MEDS ORDERED: CLINIMIX PER PHARMACY IV NR ×7 (20:00)
--- NOTE | 2018-07-20 20:00 | NUR ---
TPN STARTED. PATIENT TOLERATED WELL.
[2018-07-20 22:00] VITALS: BP 123/76
[2018-07-21 05:01] VITALS: BP 109/66
[2018-07-21 05:33] LABS: Albumin 2.4 g/dL (3.4-5.0); Magnesium 2.2 mg/dL (1.6-2.6); Potassium 3.8 mmol/L (3.5-5.1)
[2018-07-21 05:38] LABS: Bilirubin, Total 1.2 mg/dL (0.2-1.0); Total Protein 6.1 g/dL (6.4-8.2)
[2018-07-21 05:41] LABS: Phosphorus 3.7 mg/dL (2.5-4.90)
[2018-07-21] MEDS: InsuLIN REG 1unit/0.01ml Soln (100units/ml) SC SCH ×4 (06:00→23:59)
[2018-07-21] MEDS: ACCU-CHEK COMFORT CURVE STRIP VI SCH ×3 (06:12→18:40)
--- NOTE | 2018-07-21 06:54 | NUR ---
CLOSING NOTE - NOC SHIFT PATIENT IS RESTING IN BED, NO S/SX OF DISTRESS, SOB OR PAIN.
[2018-07-21 08:48] VITALS: BP 113/76
--- NOTE | 2018-07-21 09:41 | NUR ---
at bedside MD Lee at bedside, aware of patients status. New orders received for d/c home tomorrow with HH. Per Sol Zuluaga with [facility] already arranged everything and "its all taken care of". Patient instructed and educated on f/u instructions at d/c by MD including f/u with radiologist and surgeon and patient verbalized understanding. Will d/c as ordered
[2018-07-21] MEDS: PANTOPRAZOLE 40 MG/10 ML VIAL IV SCH ×2 (10:04→21:37)
[2018-07-21] MEDS: SODIUM CHLOR 0.9% PF (SALINE LOCK) 10ML VIAL/SYR IV SCH ×2 (10:06→21:37)
[2018-07-21] MEDS: CARVEDILOL 3.125 MG TAB PO SCH ×2 (10:06→21:39)
[2018-07-21] MEDS: DIGOXIN (250MCG/ML) 2 ML AMPULE IV SCH (10:07)
[2018-07-21 10:14] VITALS: BP 113/76
[2018-07-21] MEDS: ERTAPENEM SOD INJ 1 GM in SODIUM CHL 0.9% 50 ML IV SCH (10:16)
[2018-07-21] MEDS: ACETAMINOPHEN 325 MG TAB PO PRN (10:21)
--- NOTE | 2018-07-21 10:44 | NUR ---
PER GEORGE BACA ...[facility] HAS ACCEPTED PATIENT [phone]. [facility] WILL BE THE HOME [facility] [phone]. Addendum: 07/21/18 at 1513 by Domingo Majano RN [facility] WILL START CARE ON 07-21-18. GEORGE WITH [facility] WILL CALL WITH TIME FOR DELIVERY OF MEDICATION AND TPN. RN WILL START TO TAPER TPN PER MD ORDER AND PHARMACY RECOMMENDATIONS. Addendum: 07/21/18 at 1515 by Domingo Majano RN ERROR ON START DATE FOR [facility]. START DATE WILL BE 07-22-18. THEY WILL CALL PATIENT WITH A TIME FOR VISIT.
[2018-07-21 13:00] VITALS: BP 110/61
--- NOTE | 2018-07-21 13:13 | NUR ---
Spoke to clinical statistics manager I spoke to Domingo piano case maker regarding confirmation of HH and delivery of equipment as ordered. Per Domingo she's awaiting confirmation by "Sol because there might be a problem with the paper work". Per Domingo, patient cannot be d/c home yet. Awaiting confirmation of HH and equipment. Patient and pt's made aware
--- NOTE | 2018-07-21 14:40 | NUR ---
Surgeon at bedside MD Velasquez at bedside, spoke to patient and pt's extensively regarding POC and d/c f/u instructions. Pt requesting to eat "mashed potatoes and gravy and yogurt on d/c" MD Velasquez instructed patient in detail regarding ordered diet including avoiding mashed potatoes gravy and yogurt. Patient and spouse verbalized understanding. Will d/c as ordered, awaiting confirmation form Domingo adamsrn emergency. PICC line dressing changed.
--- NOTE | 2018-07-21 14:40 | NUR ---
Discharge instructions given as ordered to patient and pt's at bedside. Encourage to follow up with PMD, radiologist and surgeon as instructed. All questions and concerns addressed. Patient and spouse verbalized understanding. Medication reconciliation form completed and copy given to patient. PICC line intact, patent, dressing changed. Awaiting confirmation from case management rn for HH, abx, TPN as ordered for pt d/c.
--- NOTE | 2018-07-21 15:00 | NUR ---
Spoke to MD [address] travel med surg rn, equipment has not yet been delivered to pt's home and possibly unable to deliver TPN today therefore patient need to be taper from TPN. I informed doctor Rosa and patient. Patient requesting to "stay here one more day until tomorrow when everything is set up". Paged MD Lee regarding pt's request to cancel d/c until tomorrow, awaiting call back
[2018-07-21] MEDS: D5W/SOD CHL 0.45%/KCL 40MEQ 1,000 ML IV SCH (15:45)
--- NOTE | 2018-07-21 16:33 | NUR ---
New orders to hold d/c for today Per MD Lee, new order to d/c patient home tomorrow and Taper TPN in the a.m for d/c planning on 07/22/18. Patient informed and agrees for d/c as ordered. Will continue care as ordered, TPN currently at 54 ml/hr per pharmacy protocol. Domingo case hardener aware and states Sol with [facility] ins approved pt to stay one more day. Will endorse to oncoming Noc rn.
[2018-07-21 17:00] VITALS: BP 110/62
--- NOTE | 2018-07-21 19:05 | NUR ---
ASSUMED PATIENT CARE- NOC SHIFT PATIENT IS ALERT AND ORIENTED X4 AND MAKES APPROPRIATE EYE CONTACT. PATIENT IS IN BED, NO S/SX OF DISTRESS OR SOB. PATIENT REPORTS PAIN OF 6/10, WILL ADMINISTER PAIN MEDICATION PER MD ORDERS. BEDSIDE TABLE WITHIN REACH, CALL LIGHT WITHIN REACH. DISCUSSED POC WITH PATIENT AND INSTRUCTED PATIENT TO CALL PRN; PATIENT VERBALIZED UNDERSTANDING. WILL CONTINUE TO MONITOR Q1H AND PRN.
--- NOTE | 2018-07-21 19:05 | NUR ---
Patient care endorsed endorsed care to Amaya adams, pt laying in bed in no acute distress or sob.
[2018-07-21] MEDS: HYDROcodone-ACET 5/325MG TAB PO PRN (19:37)
[2018-07-21] MEDS ORDERED: TPN PER PHARMACY IV NR ×10 (20:00)
[2018-07-21 22:00] VITALS: BP 98/75
[2018-07-22] MEDS: HYDROcodone-ACET 5/325MG TAB PO PRN
[2018-07-22] MEDS: ACCU-CHEK COMFORT CURVE STRIP VI SCH ×3 (00:01→11:48)
[2018-07-22] MEDS: D5W/SOD CHL 0.45%/KCL 40MEQ 1,000 ML IV SCH (04:21)
[2018-07-22 04:58] VITALS: BP 105/65
[2018-07-22] MEDS: InsuLIN REG 1unit/0.01ml Soln (100units/ml) SC SCH ×2 (06:00→11:48)
--- NOTE | 2018-07-22 06:00 | NUR ---
TAPERED TPN TO 40ML PER HOUR FOR PATIENT DISCHARGE PLANNING. PATIENT STATED THAT HE RECEIVED CONFIRMATION THAT HOME [facility] DELIVERED EQUIPMENT TO HOME.
[2018-07-22 06:53] LABS: Albumin 2.5 g/dL (3.4-5.0); Calcium 8.1 mg/dL (8.5-10.1); Magnesium 2.3 mg/dL (1.6-2.6); Potassium 3.7 mmol/L (3.5-5.1)
[2018-07-22 06:56] LABS: Bilirubin, Total 0.6 mg/dL (0.2-1.0); Phosphorus 3.5 mg/dL (2.5-4.90); Total Protein 6.5 g/dL (6.4-8.2)
--- NOTE | 2018-07-22 07:42 | NUR ---
CLOSING NOTE- NOC SHIFT PATIENT IS ALERT AND ORIENTED X4, RESTING IN BED, BREATHING EVENLY. NO S/SX OF DISTRESS, SOB OR PAIN. PATIENT IS RUNNING TPN TO PICC LINE AT 40 MLS.
--- NOTE | 2018-07-22 08:18 | NUR ---
TPN TAPERED TPN TO 20ML/HR PER PHARMACY PROTOCOL. PATIENT TOLERATING WELL. NO S/S OF DISTRESS OR SOB. WILL CONT TO MONITOR
[2018-07-22 08:57] VITALS: BP 109/71
[2018-07-22] MEDS: ERTAPENEM SOD INJ 1 GM in SODIUM CHL 0.9% 50 ML IV SCH (10:21)
[2018-07-22] MEDS: PANTOPRAZOLE 40 MG/10 ML VIAL IV SCH (10:21)
[2018-07-22] MEDS: CARVEDILOL 3.125 MG TAB PO SCH (10:22)
[2018-07-22] MEDS: SODIUM CHLOR 0.9% PF (SALINE LOCK) 10ML VIAL/SYR IV SCH (10:22)
[2018-07-22] MEDS: DIGOXIN (250MCG/ML) 2 ML AMPULE IV SCH (10:22)
--- NOTE | 2018-07-22 10:22 | NUR ---
TPN TAPERED TPN PER PHARMACY PROTOCOL. TPN STOPPED AT THIS TIME PER PHARMACY. PATIENT TOLERATED WELL. PER PATIENT, HOME HEALTH RN CALLED HIM AND STATES SHE WILL FOLLOW UP WITH HIM UPON RETURNING HOME TODAY. I CONFIRMED WITH GAS TURBINE ASSEMBLER TASHA AND PATIENT IS ALL SET UP, ABX AND TPN ALREADY DELIVERED TO PT'S HOME ADDRESS REPORTED PER PATIENT. WILL D/C ORDERED ONCE ABX INFUSION IS ENDED.
--- NOTE | 2018-07-22 11:55 | NUR ---
Discharge instructions given as ordered. Encourage to follow up with PMD as instructed. All questions and concerns addressed. Patient verbalized understanding. Medication reconciliation form completed and copy given to patient. PICC line patent, dressing c/d/i. Telemetry unit returned to [facility]. Patient ambulated to vehicle with all personal belongings, accompanied by spouse. No distress noted at time of departure, sob or pain.
[2018-07-22 13:00] VITALS: BP 95/74
== END 2018-07-22 15:29 | disposition home or self-care (01) | DRG 388 ==
LOC: ER 06:14 → TELE 09:58 → TELE-EAST 14:54
PROVIDERS: ADMIT Internal Medicine; ATTEND Hospitalist
PROC: 30233K1 Transfusion of Nonautologous Frozen Plasma into Peripheral Vein, Percutaneous Approach (ICD-10-PCS; principal; 2018-07-16)
PROC: 30233L1 Transfusion of Nonautologous Fresh Plasma into Peripheral Vein, Percutaneous Approach (ICD-10-PCS; 2018-07-16)
PROC: 02HV33Z Insertion of Infusion Device into Superior Vena Cava, Percutaneous Approach (ICD-10-PCS; 2018-07-16)
DX: K56.609 Unspecified intestinal obstruction, unspecified as to partial versus complete obstruction (principal); E43 Unspecified severe protein-calorie malnutrition; K57.20 Diverticulitis of large intestine with perforation and abscess without bleeding; I48.92 Unspecified atrial flutter; I48.91 Unspecified atrial fibrillation; T45.515A Adverse effect of anticoagulants, initial encounter; I50.9 Heart failure, unspecified; I45.10 Unspecified right bundle-branch block; K44.9 Diaphragmatic hernia without obstruction or gangrene; I25.5 Ischemic cardiomyopathy; I48.2 Chronic atrial fibrillation; Z79.01 Long term (current) use of anticoagulants; Z85.820 Personal history of malignant melanoma of skin; Z95.810 Presence of automatic (implantable) cardiac defibrillator; Y92.89 Other specified places as the place of occurrence of the external cause
CPT/HCPCS: 36415; 36569; 71045; 74018; 74176; 74177; 74250; 80048; 80053; 80076; 82040; 82962; 83605; 83690; 83735; 84100; 84478; 85025; 85610; 85730; 86850; 86900; 86901; 87040; 87081; 87493; 93005; 93306; 94761; 96374; 96375; 96376; C9113; G0378; J0696; J1335; J1815; J2405; J3480; J3490

== ENCOUNTER 2023-05-22 10:44 | Inpatient (IN) | payer OTHER ==
[~2023-05-22] VITALS: Ht 177.8 cm; Wt 77.1 kg
[~2023-05-22 10:44] MED LIST changes: -LOSA-46 PO; +LOSA50TA46 PO; +WARF-110 PO; +WARF-66 PO; -WARF2.5T39 PO; -WARF5TAB71 PO
[2023-05-22 11:28] LABS: Basophils # (auto) 0.1 10 ^3/uL (0-0.2); Basophils % (auto) 0.5 % (0.0-2.0); Eosinophils # (auto) 0.7 10 ^3/uL (0-0.8); Eosinophils % (auto) 5.1 % (0.0-7.0); Hemoglobin 15.6 g/dL (13.5-17.5); Lymphocytes # (auto) 3.7 10 ^3/uL (0.4-5.4); Mean Corpuscular Hemoglobin 31.3 pg (28.0-32.0); Mean Corpuscular Hgb Conc. 34.7 g/dL (32.0-36.0); Mean Corpuscular Volume 90.3 fL (80.0-100.0); Monocytes # (auto) 0.8 10 ^3/uL (0-1.3); Monocytes % (auto) 6.1 % (0.0-12.0); Neutrophils # (auto) 7.7 10 ^3/uL (1.6-8.6); Neutrophils % (auto) 59.3 % (37.0-80.0); Nucleated Red Blood Cells % 0.1 %; Red Blood Cells 4.98 10^6/uL (4.5-5.90); White Blood Cell 12.9 10^3/uL (4.4-10.8)
[2023-05-22] MEDS ORDERED: MAALOX PLUS or MAALOX 30 ML PO ONE (11:45)
[2023-05-22] MEDS ORDERED: LIDOCAINE VISCOUS 2% 15ML UD PO ONE (11:45)
[2023-05-22] MEDS ORDERED: DONNATAL 5ml ORAL Elix (BELLADONNA ALK-PHENOBARB) PO ONE (11:45)
[2023-05-22 11:46] LABS: Alanine Aminotransferase 29 U/L (7-40); Albumin 4.8 g/dL (3.2-4.8); Alkaline Phosphatase 68 U/L (46-116); Anion Gap 8 (5-15); Aspartate Aminotransferase 23 U/L (13-40); Blood Urea Nitrogen 8 mg/dL (9-23); Carbon Dioxide 23 mmol/L (20-30); Chloride 106 mmol/L (98-107); Glucose 103 mg/dL (74-106); Potassium 4.3 mmol/L (3.5-5.1); Sodium 137 mmol/L (136-145)
[2023-05-22 11:47] LABS: INR 1.51 (0.9-1.15); Partial Thromboplastin Time 31.9 SEC (24.5-34.5); Prothrombin Time 15.4 sec (9.3-11.8)
[2023-05-22 12:01] LABS: Magnesium 1.9 mg/dL (1.6-2.6)
[2023-05-22] MEDS ORDERED: PANTOPRAZOLE 40 MG/10 ML VIAL INJ IV ONE (12:45)
[2023-05-22] MEDS ORDERED: ONDANSETRON HCL 4 MG/2 ML VIAL IV ONE (14:30)
[2023-05-22] MEDS ORDERED: SODIUM CHLORIDE 0.9% 1,000 ML IV ONE ×2 (15:15)
[2023-05-22] MEDS ORDERED: PROMETHAZINE HCL 25 MG/ML 1ML IV ONE (15:15)
[2023-05-22 15:28] VITALS: PULSE 75; RESP 20; O2SAT 96
[2023-05-22] MEDS ORDERED: cefTRIAXone 1GM/50ML D5W 50 ML IV ONE (15:30)
[2023-05-22] MEDS ORDERED: AZITHROMYCIN 500MG/ 250ML 250 ML IV ONE (15:30)
[2023-05-22] MEDS: SODIUM CHLORIDE 0.9% 1,000 ML IV SCH (16:45)
[2023-05-22 19:20] VITALS: PULSE 89; RESP 18; O2SAT 92
[2023-05-22] MEDS: MORPHINE SULFATE INJ 2 MG/ml SYRG IV PRN (19:38)
[2023-05-22 19:57] LABS: Urine WBC None Seen /hpf (0 - 3)
[2023-05-22 20:14] LABS: Urine Bacteria NONE SEEN /hpf (None Seen); Urine Blood Negative /uL (Negative); Urine Clarity Clear (Clear); Urine Color Yellow (Yellow); Urine Protein, UAD Negative (Negative); Urine Specific Gravity 1.007 (1.001-1.035); Urine Urobilinogen Normal (Negative); Urine pH 6.5 (5.0-8.0)
[2023-05-23] MEDS: SODIUM CHLORIDE 0.9% 1,000 ML IV SCH ×3 (02:54→22:45)
[2023-05-23] MEDS: ONDANSETRON HCL 4 MG/2 ML VIAL IV PRN ×2 (02:58→15:38)
[2023-05-23 05:36] LABS: Basophils # (auto) 0 10 ^3/uL (0-0.2); Basophils % (auto) 0.3 % (0.0-2.0); Eosinophils # (auto) 0.1 10 ^3/uL (0-0.8); Eosinophils % (auto) 0.5 % (0.0-7.0); Hematocrit 44.3 % (41.0-53.0); Hemoglobin 15.5 g/dL (13.5-17.5); Lymphocytes # (auto) 2.5 10 ^3/uL (0.4-5.4); Lymphocytes % (auto) 16.3 % (10.0-50.0); Mean Corpuscular Hemoglobin 31.6 pg (28.0-32.0); Mean Corpuscular Volume 90.3 fL (80.0-100.0); Monocytes % (auto) 6.5 % (0.0-12.0); Neutrophils # (auto) 11.9 10 ^3/uL (1.6-8.6); Neutrophils % (auto) 76.4 % (37.0-80.0); Nucleated Red Blood Cells % 0.1 %; Red Blood Cells 4.91 10^6/uL (4.5-5.90); Red Cell Distribution Width 14.1 % (11.8-14.3); White Blood Cell 15.6 10^3/uL (4.4-10.8)
[2023-05-23 05:48] LABS: INR 1.37 (0.9-1.15); Partial Thromboplastin Time 31.5 SEC (24.5-34.5); Prothrombin Time 14.1 sec (9.3-11.8)
[2023-05-23 05:49] LABS: Anion Gap 9 (5-15); Carbon Dioxide 24 mmol/L (20-30); Chloride 105 mmol/L (98-107); Potassium 3.9 mmol/L (3.5-5.1); Sodium 138 mmol/L (136-145)
[2023-05-23 05:50] LABS: Calcium 9.3 mg/dL (8.7-10.4)
[2023-05-23 05:55] LABS: BUN/Creatinine Ratio 9.5 (10.0-20.0); Blood Urea Nitrogen 7 mg/dL (9-23); Glucose 109 mg/dL (74-106)
[2023-05-23 07:50] VITALS: PULSE 63; RESP 16; O2SAT 98
[2023-05-23] MEDS: metroNIDAZOLE 500MG/100ML 100 ML IV SCH ×2 (14:59→21:26)
[2023-05-23] MEDS: MORPHINE SULFATE INJ 2 MG/ml SYRG IV PRN ×2 (15:39→21:43)
[2023-05-23 19:39] VITALS: PULSE 81; O2SAT 95
[2023-05-23 22:00] VITALS: BP 117/71; PULSE 56; RESP 17; TEMP 97.7; O2SAT 95
[2023-05-24] VITALS (7 sets, daily range): BP systolic 132–147; BP diastolic 70–86; PULSE 52–97; RESP 17–19; TEMP 97.5–98.7; O2SAT 94–98
[2023-05-24 04:59] LABS: Basophils # (auto) 0.1 10 ^3/uL (0-0.2); Basophils % (auto) 0.5 % (0.0-2.0); Eosinophils # (auto) 0.2 10 ^3/uL (0-0.8); Eosinophils % (auto) 2.2 % (0.0-7.0); Hematocrit 41.1 % (41.0-53.0); Hemoglobin 14.1 g/dL (13.5-17.5); Lymphocytes % (auto) 21.3 % (10.0-50.0); Mean Corpuscular Hemoglobin 31.1 pg (28.0-32.0); Mean Corpuscular Hgb Conc. 34.3 g/dL (32.0-36.0); Mean Corpuscular Volume 90.5 fL (80.0-100.0); Monocytes # (auto) 0.7 10 ^3/uL (0-1.3); Monocytes % (auto) 7.7 % (0.0-12.0); Neutrophils # (auto) 6.4 10 ^3/uL (1.6-8.6); Neutrophils % (auto) 68.3 % (37.0-80.0); Nucleated Red Blood Cells % 0.1 %; Red Blood Cells 4.54 10^6/uL (4.5-5.90); Red Cell Distribution Width 13.6 % (11.8-14.3); White Blood Cell 9.4 10^3/uL (4.4-10.8)
[2023-05-24 05:13] LABS: Anion Gap 8 (5-15); Carbon Dioxide 25 mmol/L (20-30); Chloride 107 mmol/L (98-107); Potassium 3.7 mmol/L (3.5-5.1); Sodium 140 mmol/L (136-145)
[2023-05-24 05:15] LABS: Calcium 8.9 mg/dL (8.7-10.4)
[2023-05-24 05:19] LABS: Glucose 98 mg/dL (74-106)
[2023-05-24 05:20] LABS: BUN/Creatinine Ratio 15.6 (10.0-20.0); Blood Urea Nitrogen 12 mg/dL (9-23)
[2023-05-24] MEDS: metroNIDAZOLE 500MG/100ML 100 ML IV SCH ×3 (05:44→22:03)
[2023-05-24] MEDS: SODIUM CHLORIDE 0.9% 1,000 ML IV SCH (08:45)
[2023-05-24] MEDS: levoFLOXacin 500MG 100 ML IV SCH (09:45)
[2023-05-24] MEDS: ENOXAPARIN SOD 40 MG/0.4 ML SYRINGE SC SCH (09:45)
[2023-05-24] MEDS: PANTOPRAZOLE 40 MG/10 ML VIAL INJ IV SCH (09:45)
[2023-05-24] MEDS: MORPHINE SULFATE INJ 2 MG/ml SYRG IV PRN ×3 (09:45→22:04)
[2023-05-24] MEDS: ONDANSETRON HCL 4 MG/2 ML VIAL IV PRN ×3 (10:03→22:04)
[2023-05-24] MEDS ORDERED: CLINIMIX PER PHARMACY 0 ML IV SCH (16:15)
[2023-05-24 17:10] LABS: Magnesium 1.8 mg/dL (1.6-2.6)
[2023-05-24 17:12] LABS: Phosphorus 2.9 mg/dL (2.4-5.1)
[2023-05-24] MEDS: AMINO ACID INFUSION IN D10W 1,000 ML IV NR (20:44)
[2023-05-24] MEDS: InsuLIN REG 1unit/0.01ml Soln (100units/ml) SC SCH (23:16)
[2023-05-24] MEDS: ACCU-CHEK COMFORT CURVE STRIP VI SCH (23:16)
[2023-05-25] VITALS (8 sets, daily range): BP systolic 126–146; BP diastolic 70–87; PULSE 63–89; RESP 16–18; TEMP 97.5–98.7; O2SAT 92–98
[2023-05-25] MEDS ORDERED: DEXTROSE (50%) 50ML SYRG IV SCH
[2023-05-25] MEDS: SODIUM CHLORIDE 0.9% 1,000 ML IV SCH ×4 (01:13→15:30)
[2023-05-25] MEDS: metroNIDAZOLE 500MG/100ML 100 ML IV SCH ×3 (05:44→21:03)
[2023-05-25] MEDS: ACCU-CHEK COMFORT CURVE STRIP VI SCH ×4 (05:51→23:44)
[2023-05-25] MEDS: InsuLIN REG 1unit/0.01ml Soln (100units/ml) SC SCH ×4 (05:51→23:43)
[2023-05-25 06:58] LABS: Basophils # (auto) 0.1 10 ^3/uL (0-0.2); Basophils % (auto) 0.6 % (0.0-2.0); Eosinophils # (auto) 0.2 10 ^3/uL (0-0.8); Eosinophils % (auto) 2.1 % (0.0-7.0); Hematocrit 40.8 % (41.0-53.0); Hemoglobin 14.2 g/dL (13.5-17.5); Lymphocytes % (auto) 19.7 % (10.0-50.0); Mean Corpuscular Hemoglobin 31.2 pg (28.0-32.0); Mean Corpuscular Hgb Conc. 34.9 g/dL (32.0-36.0); Mean Corpuscular Volume 89.5 fL (80.0-100.0); Monocytes # (auto) 0.7 10 ^3/uL (0-1.3); Monocytes % (auto) 7.2 % (0.0-12.0); Neutrophils # (auto) 7.2 10 ^3/uL (1.6-8.6); Neutrophils % (auto) 70.4 % (37.0-80.0); Nucleated Red Blood Cells % 0.3 %; Red Blood Cells 4.56 10^6/uL (4.5-5.90); Red Cell Distribution Width 13.4 % (11.8-14.3); White Blood Cell 10.2 10^3/uL (4.4-10.8)
[2023-05-25 07:10] LABS: Alanine Aminotransferase 16 U/L (7-40); Alkaline Phosphatase 61 U/L (46-116); Anion Gap 9 (5-15); Aspartate Aminotransferase 20 U/L (13-40); BUN/Creatinine Ratio 18.1 (10.0-20.0); Blood Urea Nitrogen 13 mg/dL (9-23); Calcium 8.9 mg/dL (8.7-10.4); Carbon Dioxide 23 mmol/L (20-30); Chloride 107 mmol/L (98-107); Glucose 109 mg/dL (74-106); Magnesium 1.8 mg/dL (1.6-2.6); Potassium 3.7 mmol/L (3.5-5.1); Sodium 139 mmol/L (136-145)
[2023-05-25 07:11] LABS: Bilirubin, Total 0.9 mg/dL (0.2-1.0); Phosphorus 2.8 mg/dL (2.4-5.1); Total Protein 6.8 g/dL (5.7-8.2)
[2023-05-25] MEDS: PANTOPRAZOLE 40 MG/10 ML VIAL INJ IV SCH (09:01)
[2023-05-25] MEDS: ENOXAPARIN SOD 40 MG/0.4 ML SYRINGE SC SCH ×2 (09:01→10:00)
[2023-05-25] MEDS: levoFLOXacin 500MG 100 ML IV SCH (09:02)
[2023-05-25] MEDS ORDERED: SUCCINYLCHOLINE CHLORIDE 20 MG/ML 10ML VIAL IV ONE (11:42)
[2023-05-25] MEDS ORDERED: fentaNYL CITRATE 100 MCG/2 ML VL ONE (11:44)
[2023-05-25] MEDS ORDERED: LIDOCAINE 1% HCL (LOCAL ANESTH.) INJ 20ML MDV ONE (12:05)
[2023-05-25] MEDS ORDERED: MEPERIDINE HCL (50 MG/ML) 1 ML VIAL ONE (12:37)
[2023-05-25] MEDS ORDERED: PROPOFOL 10 MG/ML 20 ML IV ONE (12:38)
[2023-05-25] MEDS ORDERED: ROCURONIUM 10MG/ML 10ML VIAL IV ONE (12:38)
[2023-05-25] MEDS ORDERED: dilTIAZem 25 MG/5 ML VIAL IV ONE (13:00)
[2023-05-25] MEDS ORDERED: SUGAMMADEX 200mg/2ml Vial (100MG/ML) IV ONE (14:14)
[2023-05-25] MEDS ORDERED: MEPERIDINE HCL (25 MG/ML) 1ML VIAL ONE (14:19)
[2023-05-25] MEDS ORDERED: ONDANSETRON HCL 4 MG/2 ML VIAL IV PRN (14:45)
[2023-05-25] MEDS ORDERED: MEPERIDINE HCL (25 MG/ML) 1ML VIAL IV PRN (14:45)
[2023-05-25] MEDS: HYDROmorphone HCL 2 MG/ML VL/or syr IV PRN ×2 (15:27→15:37)
[2023-05-25] MEDS: ONDANSETRON HCL 4 MG/2 ML VIAL IV PRN (17:57)
[2023-05-25] MEDS: MORPHINE SULFATE 4 MG/ML SYR/VIAL IV PRN (18:05)
[2023-05-25] MEDS: AMINO ACID INFUSION IN D10W 1,000 ML IV NR (21:03)
[2023-05-26] VITALS (7 sets, daily range): BP systolic 112–153; BP diastolic 81–89; PULSE 76–105; RESP 17–18; TEMP 97.6–98.8; O2SAT 93–98
[2023-05-26] MEDS: MORPHINE SULFATE 4 MG/ML SYR/VIAL IV PRN ×6 (01:25→19:56)
[2023-05-26] MEDS: ACCU-CHEK COMFORT CURVE STRIP VI SCH ×3 (06:00→18:00)
[2023-05-26] MEDS: metroNIDAZOLE 500MG/100ML 100 ML IV SCH ×3 (06:27→22:27)
[2023-05-26] MEDS: InsuLIN REG 1unit/0.01ml Soln (100units/ml) SC SCH ×3 (06:36→18:16)
[2023-05-26 07:13] LABS: Alanine Aminotransferase 16 U/L (7-40); Albumin 3.8 g/dL (3.2-4.8); Alkaline Phosphatase 51 U/L (46-116); Anion Gap 8 (5-15); Aspartate Aminotransferase 20 U/L (13-40); BUN/Creatinine Ratio 12.9 (10.0-20.0); Blood Urea Nitrogen 9 mg/dL (9-23); Calcium 8.7 mg/dL (8.7-10.4); Carbon Dioxide 25 mmol/L (20-30); Chloride 105 mmol/L (98-107); Glucose 146 mg/dL (74-106); Magnesium 1.6 mg/dL (1.6-2.6); Potassium 3.7 mmol/L (3.5-5.1); Sodium 138 mmol/L (136-145); Total Protein 6.3 g/dL (5.7-8.2)
[2023-05-26 07:14] LABS: Phosphorus 2.8 mg/dL (2.4-5.1)
[2023-05-26 07:26] LABS: Basophils # (auto) 0 10 ^3/uL (0-0.2); Basophils % (auto) 0.2 % (0.0-2.0); Eosinophils # (auto) 0 10 ^3/uL (0-0.8); Eosinophils % (auto) 0.1 % (0.0-7.0); Hematocrit 42.2 % (41.0-53.0); Hemoglobin 14.4 g/dL (13.5-17.5); Lymphocytes # (auto) 1.2 10 ^3/uL (0.4-5.4); Lymphocytes % (auto) 7.7 % (10.0-50.0); Mean Corpuscular Hemoglobin 31.1 pg (28.0-32.0); Mean Corpuscular Volume 91.6 fL (80.0-100.0); Monocytes # (auto) 1.1 10 ^3/uL (0-1.3); Monocytes % (auto) 6.8 % (0.0-12.0); Neutrophils # (auto) 13.5 10 ^3/uL (1.6-8.6); Neutrophils % (auto) 85.2 % (37.0-80.0); Nucleated Red Blood Cells % 0.1 %; Red Blood Cells 4.61 10^6/uL (4.5-5.90); Red Cell Distribution Width 13.7 % (11.8-14.3); White Blood Cell 15.8 10^3/uL (4.4-10.8)
[2023-05-26] MEDS: levoFLOXacin 500MG 100 ML IV SCH (08:07)
[2023-05-26] MEDS: ENOXAPARIN SOD 40 MG/0.4 ML SYRINGE SC SCH (08:07)
[2023-05-26] MEDS: PANTOPRAZOLE 40 MG/10 ML VIAL INJ IV SCH (08:07)
[2023-05-26] MEDS: ONDANSETRON HCL 4 MG/2 ML VIAL IV PRN (09:27)
[2023-05-26] MEDS: MAGNESIUM SULFATE 1GM/100ML 100 ML IV SCH ×2 (12:51→15:19)
[2023-05-26] MEDS: SODIUM CHLORIDE 0.9% 1,000 ML IV SCH (17:10)
[2023-05-26] MEDS: AMINO ACID INFUSION IN D10W 1,000 ML IV NR (20:32)
[2023-05-27] VITALS (8 sets, daily range): BP systolic 125–152; BP diastolic 71–87; PULSE 54–99; RESP 16–20; TEMP 97.6–99.2; O2SAT 93–98
[2023-05-27] MEDS: ACCU-CHEK COMFORT CURVE STRIP VI SCH ×4 (00:59→17:51)
[2023-05-27] MEDS: InsuLIN REG 1unit/0.01ml Soln (100units/ml) SC SCH ×4 (01:07→17:55)
[2023-05-27] MEDS: MORPHINE SULFATE 4 MG/ML SYR/VIAL IV PRN (02:48)
[2023-05-27 05:59] LABS: Alanine Aminotransferase 16 U/L (7-40); Albumin 3.6 g/dL (3.2-4.8); Alkaline Phosphatase 54 U/L (46-116); Anion Gap 7 (5-15); Aspartate Aminotransferase 21 U/L (13-40); BUN/Creatinine Ratio 16.7 (10.0-20.0); Blood Urea Nitrogen 11 mg/dL (9-23); Calcium 8.4 mg/dL (8.5-10.1); Carbon Dioxide 26 mmol/L (20-30); Chloride 105 mmol/L (98-107); Glucose 118 mg/dL (74-106); Phosphorus 1.9 mg/dL (2.4-5.1); Potassium 3.4 mmol/L (3.5-5.1); Sodium 138 mmol/L (136-145)
[2023-05-27 06:00] LABS: Total Protein 6.1 g/dL (5.7-8.2)
[2023-05-27 06:16] LABS: Basophils # (auto) 0 10 ^3/uL (0-0.2); Basophils % (auto) 0.2 % (0.0-2.0); Eosinophils # (auto) 0.2 10 ^3/uL (0-0.8); Hematocrit 38.3 % (41.0-53.0); Hemoglobin 13.2 g/dL (13.5-17.5); Lymphocytes # (auto) 1.5 10 ^3/uL (0.4-5.4); Lymphocytes % (auto) 10.4 % (10.0-50.0); Mean Corpuscular Hemoglobin 30.6 pg (28.0-32.0); Mean Corpuscular Hgb Conc. 34.4 g/dL (32.0-36.0); Mean Corpuscular Volume 88.8 fL (80.0-100.0); Monocytes % (auto) 6.9 % (0.0-12.0); Neutrophils % (auto) 81.5 % (37.0-80.0); Red Blood Cells 4.32 10^6/uL (4.5-5.90); Red Cell Distribution Width 13.5 % (11.8-14.3); White Blood Cell 14.8 10^3/uL (4.4-10.8)
[2023-05-27] MEDS: SODIUM CHLORIDE 0.9% 1,000 ML IV SCH ×2 (06:43→20:31)
[2023-05-27 06:50] LABS: Magnesium 1.6 mg/dL (1.6-2.6)
[2023-05-27] MEDS ORDERED: metroNIDAZOLE 500MG/100ML 100 ML IV SCH (08:00)
[2023-05-27] MEDS: MORPHINE SULFATE INJ 2 MG/ml SYRG IV PRN ×3 (08:10→20:09)
[2023-05-27] MEDS ORDERED: POTASSIUM PHOSPHATE 22 MEQ in SODIUM CHL 0.9% 100 ML IV ONE (09:00)
[2023-05-27] MEDS: ENOXAPARIN SOD 40 MG/0.4 ML SYRINGE SC SCH (09:59)
[2023-05-27] MEDS: PANTOPRAZOLE 40 MG/10 ML VIAL INJ IV SCH (09:59)
[2023-05-27] MEDS: levoFLOXacin 500MG 100 ML IV SCH (11:39)
[2023-05-27] MEDS: MAGNESIUM SULFATE 1GM/100ML 100 ML IV SCH ×2 (15:28→16:29)
[2023-05-27] MEDS: AMINO ACID INFUSION IN D10W 1,000 ML IV NR (20:30)
[2023-05-27] MEDS: PIPERACILLIN-TAZOB 3.375GM 100 ML IV SCH (22:19)
[2023-05-28] VITALS (7 sets, daily range): BP systolic 126–159; BP diastolic 79–106; PULSE 51–110; RESP 16–20; TEMP 98.1–98.5; O2SAT 93–97
[2023-05-28] MEDS: ACCU-CHEK COMFORT CURVE STRIP VI SCH ×4 (00:11→18:12)
[2023-05-28] MEDS: MORPHINE SULFATE INJ 2 MG/ml SYRG IV PRN ×2 (03:40→12:57)
[2023-05-28] MEDS: InsuLIN REG 1unit/0.01ml Soln (100units/ml) SC SCH ×4 (06:00→18:09)
[2023-05-28] MEDS ORDERED: POTASSIUM PHOSPHATE 44 MEQ in D5W 5% 250 ML IV ONE ×2 (06:15→09:30)
[2023-05-28] MEDS: PIPERACILLIN-TAZOB 3.375GM 100 ML IV SCH ×3 (06:24→22:00)
[2023-05-28 07:49] LABS: Basophils # (auto) 0 10 ^3/uL (0-0.2); Basophils % (auto) 0.2 % (0.0-2.0); Eosinophils # (auto) 0.5 10 ^3/uL (0-0.8); Eosinophils % (auto) 3.1 % (0.0-7.0); Hematocrit 40.5 % (41.0-53.0); Hemoglobin 14.2 g/dL (13.5-17.5); Lymphocytes % (auto) 12.5 % (10.0-50.0); Mean Corpuscular Hemoglobin 30.8 pg (28.0-32.0); Mean Corpuscular Volume 88.1 fL (80.0-100.0); Monocytes # (auto) 0.9 10 ^3/uL (0-1.3); Monocytes % (auto) 5.6 % (0.0-12.0); Neutrophils # (auto) 12.8 10 ^3/uL (1.6-8.6); Neutrophils % (auto) 78.6 % (37.0-80.0); Red Blood Cells 4.59 10^6/uL (4.5-5.90); Red Cell Distribution Width 13.4 % (11.8-14.3); White Blood Cell 16.3 10^3/uL (4.4-10.8)
[2023-05-28 08:19] LABS: BUN/Creatinine Ratio 18.6 (10.0-20.0)
[2023-05-28 08:21] LABS: Albumin 3.8 g/dL (3.2-4.8); Calcium 8.5 mg/dL (8.5-10.1)
[2023-05-28 08:22] LABS: Phosphorus 2.4 mg/dL (2.4-5.1)
[2023-05-28 08:45] LABS: Potassium 2.9 mmol/L (3.5-5.1)
[2023-05-28 09:33] LABS: Magnesium 1.6 mg/dL (1.6-2.6)
[2023-05-28] MEDS: ENOXAPARIN SOD 40 MG/0.4 ML SYRINGE SC SCH (09:42)
[2023-05-28] MEDS: PANTOPRAZOLE 40 MG/10 ML VIAL INJ IV SCH (09:42)
[2023-05-28] MEDS: SODIUM CHLORIDE 0.9% 1,000 ML IV SCH (10:07)
[2023-05-28] MEDS: levoFLOXacin 500MG 100 ML IV SCH (10:07)
[2023-05-28 19:50] LABS: Chloride 105 mmol/L (98-107); Potassium 4.5 mmol/L (3.5-5.1); Sodium 138 mmol/L (136-145)
[2023-05-28 19:51] LABS: Anion Gap 11 (5-15); Calcium 8.9 mg/dL (8.5-10.1); Carbon Dioxide 22 mmol/L (20-30)
[2023-05-28 19:56] LABS: BUN/Creatinine Ratio 18.8 (10.0-20.0); Blood Urea Nitrogen 12 mg/dL (9-23); Glucose 103 mg/dL (74-106)
[2023-05-28] MEDS: AMINO ACID INFUSION IN D10W 1,000 ML IV NR (20:57)
[2023-05-28] MEDS: MORPHINE SULFATE 4 MG/ML SYR/VIAL IV PRN (20:59)
[2023-05-29] VITALS (7 sets, daily range): BP systolic 124–135; BP diastolic 72–84; PULSE 63–132; RESP 14–20; TEMP 98–98.5; O2SAT 95–97
[2023-05-29] MEDS: SODIUM CHLORIDE 0.9% 1,000 ML IV SCH ×2 (00:18→15:30)
[2023-05-29] MEDS: InsuLIN REG 1unit/0.01ml Soln (100units/ml) SC SCH ×4 (00:20→17:14)
[2023-05-29] MEDS: ACCU-CHEK COMFORT CURVE STRIP VI SCH ×4 (00:20→17:15)
[2023-05-29] MEDS: MORPHINE SULFATE 4 MG/ML SYR/VIAL IV PRN ×2 (02:14→22:29)
[2023-05-29 05:12] LABS: Chloride 103 mmol/L (98-107); Potassium 3.2 mmol/L (3.5-5.1)
[2023-05-29 05:13] LABS: Anion Gap 6 (5-15); Calcium 8.8 mg/dL (8.7-10.4); Carbon Dioxide 24 mmol/L (20-30)
[2023-05-29 05:15] LABS: Sodium 133 mmol/L (136-145)
[2023-05-29 05:18] LABS: BUN/Creatinine Ratio 21.3 (10.0-20.0); Blood Urea Nitrogen 13 mg/dL (9-23); Glucose 111 mg/dL (74-106)
[2023-05-29 05:19] LABS: Magnesium 1.6 mg/dL (1.6-2.6)
[2023-05-29 05:20] LABS: Phosphorus 3.8 mg/dL (2.4-5.1)
[2023-05-29 05:21] LABS: Basophils # (auto) 0.1 10 ^3/uL (0-0.2); Basophils % (auto) 0.5 % (0.0-2.0); Eosinophils # (auto) 0.6 10 ^3/uL (0-0.8); Hematocrit 42.3 % (41.0-53.0); Hemoglobin 14.6 g/dL (13.5-17.5); Lymphocytes # (auto) 2.1 10 ^3/uL (0.4-5.4); Lymphocytes % (auto) 13.4 % (10.0-50.0); Mean Corpuscular Hemoglobin 30.7 pg (28.0-32.0); Mean Corpuscular Hgb Conc. 34.6 g/dL (32.0-36.0); Mean Corpuscular Volume 88.5 fL (80.0-100.0); Monocytes # (auto) 1.1 10 ^3/uL (0-1.3); Monocytes % (auto) 6.6 % (0.0-12.0); Neutrophils % (auto) 75.5 % (37.0-80.0); Nucleated Red Blood Cells % 0.1 %; Red Blood Cells 4.78 10^6/uL (4.5-5.90); Red Cell Distribution Width 13.3 % (11.8-14.3); White Blood Cell 15.9 10^3/uL (4.4-10.8)
[2023-05-29] MEDS: PIPERACILLIN-TAZOB 3.375GM 100 ML IV SCH ×3 (06:13→22:16)
[2023-05-29] MEDS: levoFLOXacin 500MG 100 ML IV SCH (10:12)
[2023-05-29] MEDS: POTASSIUM CHL 20MEQ/100ML 100 ML IV SCH ×2 (10:12→12:16)
[2023-05-29] MEDS: PANTOPRAZOLE 40 MG/10 ML VIAL INJ IV SCH (10:13)
[2023-05-29] MEDS: ENOXAPARIN SOD 40 MG/0.4 ML SYRINGE SC SCH (10:13)
[2023-05-29] MEDS: MORPHINE SULFATE INJ 2 MG/ml SYRG IV PRN ×2 (12:02→17:59)
[2023-05-29] MEDS: MAGNESIUM SULFATE 1GM/100ML 100 ML IV SCH ×3 (15:41→18:21)
[2023-05-29] MEDS ORDERED: MAGNESIUM SULFATE 1GM/100ML 100 ML IV SCH ×2 (16:00)
[2023-05-29] MEDS: AMINO ACID INFUSION IN D10W 1,000 ML IV NR (20:51)
[2023-05-30] VITALS (8 sets, daily range): BP systolic 117–142; BP diastolic 69–91; PULSE 66–107; RESP 12–71; TEMP 97.8–98.3; O2SAT 97–98
[2023-05-30] MEDS: SODIUM CHLORIDE 0.9% 1,000 ML IV SCH ×2 (01:10→16:10)
[2023-05-30] MEDS: PIPERACILLIN-TAZOB 3.375GM 100 ML IV SCH ×4 (01:16→21:37)
[2023-05-30 06:37] LABS: Calcium 8.3 mg/dL (8.5-10.1)
[2023-05-30 06:42] LABS: BUN/Creatinine Ratio 18.6 (10.0-20.0)
[2023-05-30 06:44] LABS: Albumin 3.6 g/dL (3.2-4.8); Phosphorus 2.8 mg/dL (2.4-5.1)
[2023-05-30] MEDS ORDERED: TPN PER PHARMACY 0 ML IV SCH (06:45)
[2023-05-30] MEDS: ACCU-CHEK COMFORT CURVE STRIP VI SCH ×4 (06:52→17:41)
[2023-05-30] MEDS: InsuLIN REG 1unit/0.01ml Soln (100units/ml) SC SCH ×4 (06:52→17:42)
[2023-05-30 07:07] LABS: Magnesium 1.7 mg/dL (1.6-2.6)
[2023-05-30] MEDS: PANTOPRAZOLE 40 MG/10 ML VIAL INJ IV SCH (09:23)
[2023-05-30] MEDS: MORPHINE SULFATE 4 MG/ML SYR/VIAL IV PRN (09:23)
[2023-05-30] MEDS: ENOXAPARIN SOD 40 MG/0.4 ML SYRINGE SC SCH (10:29)
[2023-05-30] MEDS: levoFLOXacin 500MG 100 ML IV SCH (11:47)
[2023-05-30 12:29] LABS: INR 1.58 (0.9-1.15); Partial Thromboplastin Time 34.5 SEC (24.5-34.5); Prothrombin Time 16.1 sec (9.3-11.8)
[2023-05-30] MEDS: POTASSIUM CHL 20MEQ/100ML 100 ML IV SCH ×2 (13:11→16:10)
[2023-05-30] MEDS ORDERED: LIDOCAINE 1% (LOCAL ANESTH.) PF 5ml SDV ID ONE (15:30)
[2023-05-30] MEDS: MORPHINE SULFATE INJ 2 MG/ml SYRG IV PRN ×2 (17:52→22:00)
[2023-05-30] MEDS ORDERED: SODIUM PHOSPHATES IV NR ×9 (20:00)
[2023-05-30] MEDS ORDERED: FAT EMULSION IV NR ×9 (20:00)
[2023-05-30] MEDS ORDERED: [UNRECOGNIZED DRUG - OTHER] IV NR ×9 (20:00)
[2023-05-30] MEDS ORDERED: POTASSIUM PHOSPHATE IV NR ×9 (20:00)
[2023-05-30] MEDS: SODIUM CHLOR 0.9% PF (SALINE LOCK) 10ML VIAL/SYR IV SCH (21:43)
[2023-05-31] VITALS (7 sets, daily range): BP systolic 119–137; BP diastolic 71–92; PULSE 66–113; RESP 17–19; TEMP 98.2–99; O2SAT 95–98
[2023-05-31] MEDS: ACCU-CHEK COMFORT CURVE STRIP VI SCH ×5 (01:29→23:01)
[2023-05-31] MEDS: MORPHINE SULFATE 4 MG/ML SYR/VIAL IV PRN ×4 (01:30→22:44)
[2023-05-31] MEDS: InsuLIN REG 1unit/0.01ml Soln (100units/ml) SC SCH ×5 (01:36→23:02)
[2023-05-31] MEDS: SODIUM CHLORIDE 0.9% 1,000 ML IV SCH ×2 (03:50→17:10)
[2023-05-31] MEDS: PIPERACILLIN-TAZOB 3.375GM 100 ML IV SCH ×3 (06:24→22:40)
[2023-05-31 09:18] LABS: Alanine Aminotransferase 32 U/L (7-40); Albumin 3.6 g/dL (3.2-4.8); Alkaline Phosphatase 48 U/L (46-116); Anion Gap 9 (5-15); Aspartate Aminotransferase 35 U/L (13-40); BUN/Creatinine Ratio 13.7 (10.0-20.0); Bilirubin, Total 0.8 mg/dL (0.2-1.0); Blood Urea Nitrogen 7 mg/dL (9-23); Calcium 8.4 mg/dL (8.5-10.1); Carbon Dioxide 22 mmol/L (20-30); Chloride 104 mmol/L (98-107); Glucose 115 mg/dL (74-106); Potassium 3.3 mmol/L (3.5-5.1); Sodium 135 mmol/L (136-145); Total Protein 6.3 g/dL (5.7-8.2); Triglycerides 115 mg/dL (< 150)
[2023-05-31 09:29] LABS: Magnesium 1.8 mg/dL (1.6-2.6)
[2023-05-31] MEDS ORDERED: POTASSIUM CHL 20MEQ/100ML 100 ML IV ONE (09:30)
[2023-05-31] MEDS: levoFLOXacin 500MG 100 ML IV SCH (09:35)
[2023-05-31] MEDS: ENOXAPARIN SOD 40 MG/0.4 ML SYRINGE SC SCH (09:35)
[2023-05-31] MEDS: SODIUM CHLOR 0.9% PF (SALINE LOCK) 10ML VIAL/SYR IV SCH ×2 (09:36→22:00)
[2023-05-31] MEDS: PANTOPRAZOLE 40 MG/10 ML VIAL INJ IV SCH ×3 (09:42→22:41)
[2023-05-31] MEDS ORDERED: MAGNESIUM SULFATE 1GM/100ML 100 ML IV ONE (12:45)
[2023-05-31] MEDS ORDERED: TPN PER PHARMACY IV NR ×9 (20:00)
[2023-06-01] MEDS ORDERED: POTASSIUM CHL 20MEQ/100ML 100 ML IV ONE ×2 (02:00→08:45)
[2023-06-01 04:56] LABS: Basophils # (auto) 0.1 10 ^3/uL (0-0.2); Nucleated Red Blood Cells % 0.1 %; White Blood Cell 6.8 10^3/uL (4.4-10.8)
[2023-06-01 04:59] LABS: Basophils % (auto) 1.1 % (0.0-2.0); Eosinophils # (auto) 0.4 10 ^3/uL (0-0.8); Eosinophils % (auto) 6.3 % (0.0-7.0); Hematocrit 38.5 % (41.0-53.0); Hemoglobin 13.6 g/dL (13.5-17.5); Lymphocytes # (auto) 1.4 10 ^3/uL (0.4-5.4); Lymphocytes % (auto) 20.4 % (10.0-50.0); Mean Corpuscular Hemoglobin 31.1 pg (28.0-32.0); Mean Corpuscular Hgb Conc. 35.3 g/dL (32.0-36.0); Mean Corpuscular Volume 88.1 fL (80.0-100.0); Monocytes # (auto) 0.9 10 ^3/uL (0-1.3); Monocytes % (auto) 13.3 % (0.0-12.0); Neutrophils % (auto) 58.9 % (37.0-80.0); Red Blood Cells 4.37 10^6/uL (4.5-5.90); Red Cell Distribution Width 13.5 % (11.8-14.3)
[2023-06-01 05:00] VITALS: BP 122/71; PULSE 81; RESP 16; TEMP 98.3; O2SAT 96
[2023-06-01] MEDS: InsuLIN REG 1unit/0.01ml Soln (100units/ml) SC SCH ×3 (05:09→18:10)
[2023-06-01] MEDS: ACCU-CHEK COMFORT CURVE STRIP VI SCH ×3 (05:09→18:09)
[2023-06-01 05:22] LABS: Alanine Aminotransferase 38 U/L (7-40); Albumin 3.6 g/dL (3.2-4.8); Alkaline Phosphatase 57 U/L (46-116); Anion Gap 9 (5-15); Aspartate Aminotransferase 35 U/L (13-40); BUN/Creatinine Ratio 14.9 (10.0-20.0); Blood Urea Nitrogen 10 mg/dL (9-23); Calcium 8.3 mg/dL (8.7-10.4); Carbon Dioxide 24 mmol/L (20-30); Chloride 103 mmol/L (98-107); Glucose 131 mg/dL (74-106); Magnesium 1.7 mg/dL (1.6-2.6); Potassium 3.2 mmol/L (3.5-5.1); Sodium 136 mmol/L (136-145)
[2023-06-01 05:23] LABS: Bilirubin, Total 0.7 mg/dL (0.2-1.0); Phosphorus 3.6 mg/dL (2.4-5.1); Total Protein 6.1 g/dL (5.7-8.2)
[2023-06-01] MEDS: SODIUM CHLORIDE 0.9% 1,000 ML IV SCH ×2 (05:27→20:24)
[2023-06-01] MEDS: PIPERACILLIN-TAZOB 3.375GM 100 ML IV SCH ×3 (05:27→22:04)
[2023-06-01] MEDS: MORPHINE SULFATE INJ 2 MG/ml SYRG IV PRN ×2 (05:28→22:05)
[2023-06-01 08:00] VITALS: PULSE 75; PULSE 84; RESP 19; O2SAT 96
[2023-06-01 08:05] VITALS: BP 110/72; PULSE 75; RESP 19; TEMP 97.7; O2SAT 96
[2023-06-01] MEDS: PANTOPRAZOLE 40 MG/10 ML VIAL INJ IV SCH ×2 (08:53→22:04)
[2023-06-01] MEDS: SODIUM CHLOR 0.9% PF (SALINE LOCK) 10ML VIAL/SYR IV SCH ×2 (08:54→22:04)
[2023-06-01] MEDS: ENOXAPARIN SOD 40 MG/0.4 ML SYRINGE SC SCH (08:54)
[2023-06-01] MEDS: MAGNESIUM SULFATE 1GM/100ML 100 ML IV SCH ×2 (08:56→14:22)
[2023-06-01] MEDS: levoFLOXacin 500MG 100 ML IV SCH (11:01)
[2023-06-01] MEDS ORDERED: GASTROGRAFIN 120 ML SOL ONE (11:13)
[2023-06-01 14:52] LABS: Potassium 4.2 mmol/L (3.5-5.1)
[2023-06-01 15:15] LABS: Magnesium 2.2 mg/dL (1.6-2.6)
[2023-06-01 17:05] VITALS: BP 110/67; PULSE 62; RESP 18; TEMP 97.6; O2SAT 98
[2023-06-01] MEDS ORDERED: METOPROLOL TARTRATE 1MG/1ML-5ML VIAL IV PRN (17:15)
[2023-06-01] MEDS ORDERED: SODIUM CHLORIDE 0.9% 1,000 ML IV ONE (17:30)
[2023-06-01 20:00] VITALS: PULSE 145; PULSE 60; RESP 17; O2SAT 97
[2023-06-01] MEDS ORDERED: TPN PER PHARMACY IV NR ×10 (20:00)
[2023-06-01 22:00] VITALS: BP 113/74; PULSE 60; RESP 17; TEMP 98.5; O2SAT 97
[2023-06-02] VITALS (7 sets, daily range): BP systolic 109–137; BP diastolic 68–74; PULSE 64–110; RESP 18–20; TEMP 97.8–98.6; O2SAT 95–98
[2023-06-02] MEDS: ACCU-CHEK COMFORT CURVE STRIP VI SCH ×4 (00:08→17:23)
[2023-06-02] MEDS: InsuLIN REG 1unit/0.01ml Soln (100units/ml) SC SCH ×4 (00:11→17:23)
[2023-06-02] MEDS: PIPERACILLIN-TAZOB 3.375GM 100 ML IV SCH ×3 (05:55→21:32)
[2023-06-02 06:59] LABS: Alanine Aminotransferase 75 U/L (7-40); Alkaline Phosphatase 71 U/L (46-116); Anion Gap 9 (5-15); BUN/Creatinine Ratio 13.9 (10.0-20.0); Basophils # (auto) 0.2 10 ^3/uL (0-0.2); Basophils % (auto) 2.1 % (0.0-2.0); Blood Urea Nitrogen 10 mg/dL (9-23); Calcium 8.7 mg/dL (8.7-10.4); Carbon Dioxide 23 mmol/L (20-30); Chloride 107 mmol/L (98-107); Eosinophils # (auto) 0.4 10 ^3/uL (0-0.8); Eosinophils % (auto) 4.7 % (0.0-7.0); Glucose 102 mg/dL (74-106); Hematocrit 39.9 % (41.0-53.0); Hemoglobin 13.8 g/dL (13.5-17.5); Lymphocytes % (auto) 26.5 % (10.0-50.0); Magnesium 2.1 mg/dL (1.6-2.6); Mean Corpuscular Hemoglobin 31.1 pg (28.0-32.0); Mean Corpuscular Hgb Conc. 34.7 g/dL (32.0-36.0); Mean Corpuscular Volume 89.7 fL (80.0-100.0); Monocytes % (auto) 13.6 % (0.0-12.0); Neutrophils % (auto) 53.1 % (37.0-80.0); Nucleated Red Blood Cells % 0.2 %; Potassium 3.5 mmol/L (3.5-5.1); Red Blood Cells 4.45 10^6/uL (4.5-5.90); Red Cell Distribution Width 13.5 % (11.8-14.3); Sodium 139 mmol/L (136-145); White Blood Cell 7.5 10^3/uL (4.4-10.8)
[2023-06-02 07:00] LABS: Albumin 3.8 g/dL (3.2-4.8); Aspartate Aminotransferase 54 U/L (13-40); Bilirubin, Total 0.7 mg/dL (0.2-1.0); Phosphorus 3.5 mg/dL (2.4-5.1); Total Protein 6.7 g/dL (5.7-8.2)
[2023-06-02] MEDS: ENOXAPARIN SOD 40 MG/0.4 ML SYRINGE SC SCH (08:57)
[2023-06-02] MEDS: PANTOPRAZOLE 40 MG/10 ML VIAL INJ IV SCH ×2 (08:57→21:32)
[2023-06-02] MEDS: SODIUM CHLOR 0.9% PF (SALINE LOCK) 10ML VIAL/SYR IV SCH ×2 (08:57→21:33)
[2023-06-02] MEDS: levoFLOXacin 500MG 100 ML IV SCH (08:57)
[2023-06-02] MEDS: SODIUM CHLORIDE 0.9% 1,000 ML IV SCH ×2 (08:58→21:33)
[2023-06-02] MEDS ORDERED: POTASSIUM CHL 20MEQ/100ML 100 ML IV ONE (09:00)
[2023-06-02] MEDS ORDERED: TPN PER PHARMACY IV NR ×9 (20:00)
[2023-06-02] MEDS: MORPHINE SULFATE INJ 2 MG/ml SYRG IV PRN (21:37)
[2023-06-03] MEDS: MORPHINE SULFATE INJ 2 MG/ml SYRG IV PRN ×2 (01:17→09:41)
[2023-06-03 05:00] VITALS: BP 115/75; PULSE 92; RESP 18; TEMP 98.6; O2SAT 96
[2023-06-03] MEDS: PIPERACILLIN-TAZOB 3.375GM 100 ML IV SCH (05:55)
[2023-06-03 06:48] LABS: Alanine Aminotransferase 58 U/L (7-40); Albumin 3.4 g/dL (3.2-4.8); Alkaline Phosphatase 65 U/L (46-116); Anion Gap 7 (5-15); Aspartate Aminotransferase 37 U/L (13-40); BUN/Creatinine Ratio 10.1 (10.0-20.0); Bilirubin, Total 0.7 mg/dL (0.2-1.0); Blood Urea Nitrogen 7 mg/dL (9-23); Calcium 8.6 mg/dL (8.7-10.4); Carbon Dioxide 22 mmol/L (20-30); Chloride 107 mmol/L (98-107); Glucose 88 mg/dL (74-106); Potassium 3.6 mmol/L (3.5-5.1); Sodium 136 mmol/L (136-145); Total Protein 6.1 g/dL (5.7-8.2)
[2023-06-03 07:14] LABS: Basophils # (auto) 0.2 10 ^3/uL (0-0.2); Basophils % (auto) 2.6 % (0.0-2.0); Eosinophils # (auto) 0.5 10 ^3/uL (0-0.8); Eosinophils % (auto) 8.1 % (0.0-7.0); Hematocrit 36.9 % (41.0-53.0); Hemoglobin 12.5 g/dL (13.5-17.5); Lymphocytes # (auto) 1.9 10 ^3/uL (0.4-5.4); Mean Corpuscular Hemoglobin 30.6 pg (28.0-32.0); Mean Corpuscular Hgb Conc. 33.8 g/dL (32.0-36.0); Mean Corpuscular Volume 90.4 fL (80.0-100.0); Monocytes # (auto) 0.8 10 ^3/uL (0-1.3); Neutrophils # (auto) 2.6 10 ^3/uL (1.6-8.6); Neutrophils % (auto) 44.3 % (37.0-80.0); Nucleated Red Blood Cells % 0.3 %; Red Blood Cells 4.08 10^6/uL (4.5-5.90); Red Cell Distribution Width 13.6 % (11.8-14.3); White Blood Cell 5.9 10^3/uL (4.4-10.8)
[2023-06-03 08:00] VITALS: BP 121/86; PULSE 77; PULSE 97; RESP 20; TEMP 98.6; O2SAT 96
[2023-06-03 08:41] VITALS: BP 121/86; PULSE 77; RESP 20; TEMP 98.6; O2SAT 96
[2023-06-03] MEDS ORDERED: ENOX80IN SC (09:15)
[2023-06-03] MEDS ORDERED: HYDR-4902 PO (09:16)
[2023-06-03] MEDS: levoFLOXacin 500MG 100 ML IV SCH (09:40)
[2023-06-03] MEDS: PANTOPRAZOLE 40 MG/10 ML VIAL INJ IV SCH (09:40)
[2023-06-03] MEDS: SODIUM CHLOR 0.9% PF (SALINE LOCK) 10ML VIAL/SYR IV SCH (09:41)
[2023-06-03] MEDS: ENOXAPARIN SOD 40 MG/0.4 ML SYRINGE SC SCH (09:41)
[2023-06-03 10:11] VITALS: BP 121/86; PULSE 77; RESP 20
[2023-06-03] MEDS: SODIUM CHLORIDE 0.9% 1,000 ML IV SCH (11:50)
== END 2023-06-03 12:30 | disposition home health service (06) | DRG 330 ==
LOC: ER 10:44 → TELE 16:41 → TELE-WESTW 05-23 19:13
PROVIDERS: ADMIT Internal Medicine; ATTEND Internal Medicine
PROC: 0D9670Z Drainage of Stomach with Drainage Device, Via Natural or Artificial Opening (ICD-10-PCS; 2023-05-24)
PROC: 0WJG4ZZ Inspection of Peritoneal Cavity, Percutaneous Endoscopic Approach (ICD-10-PCS; 2023-05-25)
PROC: 0DB80ZZ Excision of Small Intestine, Open Approach (ICD-10-PCS; 2023-05-25)
PROC: 0DNW4ZZ Release Peritoneum, Percutaneous Endoscopic Approach (ICD-10-PCS; 2023-05-25)
PROC: 0WQF0ZZ Repair Abdominal Wall, Open Approach (ICD-10-PCS; 2023-05-25)
PROC: 0DQ80ZZ Repair Small Intestine, Open Approach (ICD-10-PCS; principal; 2023-05-25 12:20)
PROC: 02HV33Z Insertion of Infusion Device into Superior Vena Cava, Percutaneous Approach (ICD-10-PCS; 2023-05-30)
PROC: B548ZZA Ultrasonography of Superior Vena Cava, Guidance (ICD-10-PCS; 2023-05-30)
DX: K42.0 Umbilical hernia with obstruction, without gangrene (principal); K57.32 Diverticulitis of large intestine without perforation or abscess without bleeding; K63.2 Fistula of intestine; K44.9 Diaphragmatic hernia without obstruction or gangrene; I48.0 Paroxysmal atrial fibrillation; I11.0 Hypertensive heart disease with heart failure; K66.0 Peritoneal adhesions (postprocedural) (postinfection); I50.9 Heart failure, unspecified; K29.70 Gastritis, unspecified, without bleeding; D72.829 Elevated white blood cell count, unspecified; Z85.820 Personal history of malignant melanoma of skin; Z95.2 Presence of prosthetic heart valve; Z53.31 Laparoscopic surgical procedure converted to open procedure
CPT/HCPCS: 36415; 36569; 71045; 74018; 74176; 74250; 80048; 80053; 80069; 81001; 82962; 83605; 83735; 83880; 84100; 84132; 84478; 84484; 85025; 85610; 85730; 86850; 86900; 86901; 87040; 93005; 97110; 97116; 97163; 97530; C9113; G0378; J0330; J0696; J1815; J1956; J2001; J2405; J2543; J2704; J3480; J3490; J7060

== ENCOUNTER 2023-07-07 11:49 | Emergency (ER) | payer OTHER ==
[~2023-07-07] VITALS: Ht 177.8 cm; Wt 71.8 kg
[~2023-07-07 11:49] MED LIST changes: +ENOX80IN SC; +HYDR-4902 PO; -LOSA50TA46 PO
[2023-07-07 12:15] LABS: Basophils # (auto) 0.1 10 ^3/uL (0-0.2); Basophils % (auto) 0.5 % (0.0-2.0); Eosinophils # (auto) 0.6 10 ^3/uL (0-0.8); Eosinophils % (auto) 4.8 % (0.0-7.0); Hematocrit 41.7 % (41.0-53.0); Hemoglobin 14.1 g/dL (13.5-17.5); Lymphocytes # (auto) 2.6 10 ^3/uL (0.4-5.4); Lymphocytes % (auto) 22.5 % (10.0-50.0); Mean Corpuscular Hemoglobin 30.6 pg (28.0-32.0); Mean Corpuscular Hgb Conc. 33.8 g/dL (32.0-36.0); Mean Corpuscular Volume 90.4 fL (80.0-100.0); Monocytes # (auto) 0.8 10 ^3/uL (0-1.3); Monocytes % (auto) 6.8 % (0.0-12.0); Neutrophils # (auto) 7.6 10 ^3/uL (1.6-8.6); Neutrophils % (auto) 65.4 % (37.0-80.0); Nucleated Red Blood Cells % 0.1 %; Red Blood Cells 4.62 10^6/uL (4.5-5.90); Red Cell Distribution Width 13.3 % (11.8-14.3); White Blood Cell 11.6 10^3/uL (4.4-10.8)
[2023-07-07 12:32] LABS: Alanine Aminotransferase 26 U/L (7-40); Albumin 4.6 g/dL (3.2-4.8); Alkaline Phosphatase 68 U/L (46-116); Anion Gap 8 (5-15); Aspartate Aminotransferase 28 U/L (13-40); BUN/Creatinine Ratio 21.8 (10.0-20.0); Bilirubin, Total 0.6 mg/dL (0.2-1.0); Blood Urea Nitrogen 17 mg/dL (9-23); Calcium 10.2 mg/dL (8.5-10.1); Carbon Dioxide 25 mmol/L (20-30); Chloride 106 mmol/L (98-107); Glucose 88 mg/dL (74-106); Potassium 4.3 mmol/L (3.5-5.1); Sodium 139 mmol/L (136-145); Total Protein 7.3 g/dL (5.7-8.2)
[2023-07-07 12:39] LABS: INR 1.89 (0.9-1.15); Partial Thromboplastin Time 34.6 SEC (24.5-34.5)
[2023-07-07 12:49] LABS: Magnesium 1.9 mg/dL (1.6-2.6)
[2023-07-07 13:45] VITALS: BP 148/82; PULSE 77; RESP 18; O2SAT 100
== END 2023-07-07 16:04 | disposition left against medical advice (07) ==
LOC: ER 11:49
DX: I47.29 Other ventricular tachycardia (principal); T82.897A Other specified complication of cardiac prosthetic devices, implants and grafts, initial encounter; I48.91 Unspecified atrial fibrillation; Z95.810 Presence of automatic (implantable) cardiac defibrillator; Z98.890 Other specified postprocedural states; Z79.899 Other long term (current) drug therapy
CPT/HCPCS: 36415; 71045; 80053; 83735; 83880; 84484; 85025; 85610; 85730; 93005